=== PATIENT | female | born 1975 | race Caucasian/White ===

== ENCOUNTER 2016-04-24 16:35 | Emergency (ER) | payer MEDICARE ==
[2015-12-29 10:44] VITALS: BMI 55.2
[~2016-04-24 16:35] MED LIST: AMITRIPTYLINE H50 MG PO; CATAPRES0.1 MG PO; CELEXA10 MG PO; GLUCOPHAGE500 MG PO; IPRAT-ALBUT 0.5-3 ML UPD; LANTUS SOL100 UNIT/1 SC; NORVASC5 MG PO; PROAIR HFA8.5 GM INH; SINGULAIR10 MG PO; STERAPRED DS 1210 MG PO; SYMBICORT 16010.2 GM INH
== END 2016-04-24 19:35 | disposition home or self-care (01) ==
LOC: D.ER 16:35
DX: J01.90 Acute sinusitis, unspecified (principal); J20.9 Acute bronchitis, unspecified; F41.9 Anxiety disorder, unspecified; J45.909 Unspecified asthma, uncomplicated; J44.9 Chronic obstructive pulmonary disease, unspecified; F32.9 Major depressive disorder, single episode, unspecified; E11.9 Type 2 diabetes mellitus without complications; Z79.4 Long term (current) use of insulin; E28.2 Polycystic ovarian syndrome

== ENCOUNTER 2016-08-21 14:12 | Emergency (ER) | payer MEDICARE ==
[2015-12-29 10:44] VITALS: BMI 55.2
== END 2016-08-21 17:49 | disposition home or self-care (01) ==
LOC: D.ER 14:12
DX: S63.501A Unspecified sprain of right wrist, initial encounter (principal); W01.0XXA Fall on same level from slipping, tripping and stumbling without subsequent striking against object, initial encounter; Y93.89 Activity, other specified; Y92.512 Supermarket, store or market as the place of occurrence of the external cause; J45.909 Unspecified asthma, uncomplicated; J44.9 Chronic obstructive pulmonary disease, unspecified; F32.9 Major depressive disorder, single episode, unspecified; E11.9 Type 2 diabetes mellitus without complications; Z79.4 Long term (current) use of insulin; I10 Essential (primary) hypertension; E28.2 Polycystic ovarian syndrome

== ENCOUNTER 2016-10-18 11:36 | Emergency (ER) | payer MEDICARE ==
[2015-12-29 10:44] VITALS: BMI 55.2
[2016-10-18 12:34] LABS: APPEARANCE CLEAR (CLEAR); COLOR YELLOW (YELLOW); LEUKOCYTE ESTERASE NEGATIVE (NEGATIVE); SPECIFIC GRAVITY 1.015 (1.005-1.020)
[2016-10-18 12:35] LABS: BILIRUBIN NEGATIVE (NEGATIVE); GLUCOSE NEGATIVE (NEGATIVE); KETONE NEGATIVE (NEGATIVE); NITRITE NEGATIVE (NEGATIVE); PROTEIN NEGATIVE (NEGATIVE); UROBILINOGEN NORMAL (NORMAL)
[2016-10-18 12:42] LABS: UDS - AMPHET NEGATIVE QUAL (NEGATIVE); UDS - BARB NEGATIVE QUAL (NEGATIVE); UDS - BENZO NEGATIVE QUAL (NEGATIVE); UDS - COCAINE NEGATIVE QUAL (NEGATIVE); UDS - METH NEGATIVE QUAL (NEGATIVE); UDS - OPIATE NEGATIVE QUAL (NEGATIVE); UDS - PCP NEGATIVE QUAL (NEGATIVE); UDS - THC NEGATIVE QUAL (NEGATIVE)
[2016-10-18 13:00] LABS: HCG SERUM NEGATIVE (NEGATIVE)
[2016-10-18 13:06] LABS: ALBUMIN 3.6 g/dL (3.4-5.0); ALKALINE PHOSPHATASE 87 U/L (46-116); ALT (SGPT) 34 U/L (10-68); BILIRUBIN - TOTAL 0.28 mg/dL (0.2-1.3); CALC OSMOLALITY 277 mosm/kg (275-300); CARBON DIOXIDE 26.5 mmol/L (21.0-32.0); CHLORIDE - SERUM 102 mmol/L (98-107); CREATININE - SERUM 0.8 mg/dL (0.6-1.3); GLUCOSE 153 mg/dL (74-106); POTASSIUM - SERUM 4.5 mmol/L (3.5-5.1); PROTEIN - SERUM 7.6 g/dL (6.4-8.2); SODIUM 138 mmol/L (136-145); UREA NITROGEN 9 mg/dL (7-18); eGFR NON AFRICAN AMERICAN 83 mL/min (90-120)
[2016-10-18 13:07] LABS: APTT 27.3 SECONDS (22.8-39.4); INR 0.94 (0.85-1.17); PROTIME 12.4 SECONDS (11.6-15.0)
[2016-10-18 13:13] LABS: BASOPHILS 0.2 % (0-2); EOSINOPHILS 1.6 % (0-7); HEMATOCRIT 37.4 % (36.0-48.0); HEMOGLOBIN 12.5 g/dL (12-16); IMMATURE GRANULOCYTES 0.2 % (0-5); LYMPHOCYTES 27.8 % (15-50); MCH 29.6 pg (26.0-34.0); MCHC 33.4 g/dL (31.0-37.0); MCV 88.6 fL (80.0-100.0); MEAN PLATELET VOLUME 11.2 fL (7.4-10.4); MONOCYTES 6.2 % (2-11); PLATELET COUNT 298 10x3/uL (130-400); RBC 4.22 10x6/uL (4.00-5.40); RDW 13.5 % (11.5-14.5); WBC 12.2 10x3/uL (4.8-10.8)
== END 2016-10-18 14:22 | disposition home or self-care (01) ==
LOC: D.ER 11:36
PROVIDERS: Emergency Medicine; Physician Assistant
DX: R10.9 Unspecified abdominal pain (principal); K92.0 Hematemesis; E11.9 Type 2 diabetes mellitus without complications; Z79.4 Long term (current) use of insulin; I10 Essential (primary) hypertension

== ENCOUNTER 2016-11-03 11:11 | Emergency (ER) | payer MEDICARE ==
[2015-12-29 10:44] VITALS: BMI 55.2
== END 2016-11-03 14:28 | disposition home or self-care (01) ==
LOC: D.ER 11:11
DX: J45.901 Unspecified asthma with (acute) exacerbation (principal); J44.9 Chronic obstructive pulmonary disease, unspecified; E11.9 Type 2 diabetes mellitus without complications; I10 Essential (primary) hypertension; Z79.4 Long term (current) use of insulin

== ENCOUNTER → 2017-01-05 10:26 | Outpatient (CLI) | payer MEDICARE ==
[2015-12-29 10:44] VITALS: BMI 55.2
== END | disposition home or self-care (01) ==
LOC: D.RT 10:00
DX: J44.9 Chronic obstructive pulmonary disease, unspecified (principal)

== ENCOUNTER 2017-02-22 08:22 | Emergency (ER) | payer MEDICARE ==
[2015-12-29 10:44] VITALS: BMI 55.2
[~2017-02-22 08:22] MED LIST changes: -CELEXA10 MG PO; +CELEXA40 MG PO
[2017-02-22 08:55] LABS: BASOPHILS 0.3 % (0-2); EOSINOPHILS 0.8 % (0-7); HEMATOCRIT 37.5 % (36.0-48.0); HEMOGLOBIN 12.2 g/dL (12-16); IMMATURE GRANULOCYTES 0.7 % (0-5); LYMPHOCYTES 17.9 % (15-50); MCH 29.3 pg (26.0-34.0); MCHC 32.5 g/dL (31.0-37.0); MCV 90.1 fL (80.0-100.0); MONOCYTES 11.1 % (2-11); NEUTROPHILS 69.2 % (40-80); PLATELET COUNT 255 10x3/uL (130-400); RBC 4.16 10x6/uL (4.00-5.40); RDW 13.7 % (11.5-14.5); WBC 7.4 10x3/uL (4.8-10.8)
[2017-02-22 09:23] LABS: ALBUMIN 3.6 g/dL (3.4-5.0); ALKALINE PHOSPHATASE 85 U/L (46-116); ALT (SGPT) 38 U/L (10-68); BILIRUBIN - TOTAL 0.27 mg/dL (0.2-1.3); CALC OSMOLALITY 278 mosm/kg (275-300); CALCIUM 8.6 mg/dL (8.5-10.1); CARBON DIOXIDE 25.7 mmol/L (21.0-32.0); CHLORIDE - SERUM 101 mmol/L (98-107); CREATININE - SERUM 0.8 mg/dL (0.6-1.3); GLUCOSE 184 mg/dL (74-106); POTASSIUM - SERUM 3.5 mmol/L (3.5-5.1); PROTEIN - SERUM 8.4 g/dL (6.4-8.2); SODIUM 138 mmol/L (136-145); UREA NITROGEN 8 mg/dL (7-18); eGFR NON AFRICAN AMERICAN 83 mL/min (90-120)
== END 2017-02-22 10:34 | disposition home or self-care (01) ==
LOC: D.ER 08:22
PROVIDERS: Emergency Medicine
DX: J45.901 Unspecified asthma with (acute) exacerbation (principal); F17.200 Nicotine dependence, unspecified, uncomplicated; J44.9 Chronic obstructive pulmonary disease, unspecified; E11.9 Type 2 diabetes mellitus without complications; Z79.4 Long term (current) use of insulin; I10 Essential (primary) hypertension

== ENCOUNTER → 2017-03-22 08:19 | Outpatient (CLI) | payer MEDICARE ==
[~2017-03-22] VITALS: Ht 162.6 cm; Wt 156.5 kg
[~2017-03-22 08:19] MED LIST changes: +LOVENOX40 MG/0.4 SC; +NORCO 7.5/325 T1 TA1 PO; +OMEPRAZOLE40 MG PO; +ONDANSETRON4 MG/2 M3 IV; +PHENERGAN25 MG/ML IV; +PROTONIX I40 MG/VIAL IV; +TYLENOL650 MG/20. PO; +ZOFRAN4 MG PO
[2017-03-22 14:04] VITALS: Ht 162.6 cm; Wt 156.5 kg
== END | disposition home or self-care (01) ==
LOC: D.FANS 01-18 09:00
DX: K21.9 Gastro-esophageal reflux disease without esophagitis (principal); E66.01 Morbid (severe) obesity due to excess calories; E11.9 Type 2 diabetes mellitus without complications

== ENCOUNTER → 2017-03-24 08:09 | Outpatient (CLI) | payer MEDICARE ==
[2017-03-22 14:04] VITALS: BMI 59.2
== END | disposition home or self-care (01) ==
LOC: D.RAD 08:09
DX: E66.01 Morbid (severe) obesity due to excess calories (principal)

== ENCOUNTER 2017-03-29 08:24 | Day surgery (SDC) | payer MEDICARE ==
[~2017-03-29] VITALS: Ht 162.6 cm; Wt 155.9 kg
[~2017-03-29 08:24] MED LIST changes: -LOVENOX40 MG/0.4 SC; -NORCO 7.5/325 T1 TA1 PO; -OMEPRAZOLE40 MG PO; -ONDANSETRON4 MG/2 M3 IV; -PHENERGAN25 MG/ML IV; -PROTONIX I40 MG/VIAL IV; -TYLENOL650 MG/20. PO; -ZOFRAN4 MG PO
[2017-03-29 09:23] VITALS: BP 142/80; Ht 162.6 cm; Wt 155.9 kg
[2017-03-29 09:54] LABS: HEMATOCRIT 37.5 % (36.0-48.0); HEMOGLOBIN 12.5 g/dL (12-16); MCH 29.5 pg (26.0-34.0); MCHC 33.3 g/dL (31.0-37.0); MCV 88.4 fL (80.0-100.0); MEAN PLATELET VOLUME 10.9 fL (7.4-10.4); RBC 4.24 10x6/uL (4.00-5.40); RDW 13.3 % (11.5-14.5); WBC 11.5 10x3/uL (4.8-10.8)
[2017-03-29 10:43] LABS: CALC OSMOLALITY 278 mosm/kg (275-300); CALCIUM 9.3 mg/dL (8.5-10.1); CARBON DIOXIDE 28.4 mmol/L (21.0-32.0); CHLORIDE - SERUM 100 mmol/L (98-107); CREATININE - SERUM 0.7 mg/dL (0.6-1.3); GLUCOSE 188 mg/dL (74-106); POTASSIUM - SERUM 3.8 mmol/L (3.5-5.1); SODIUM 137 mmol/L (136-145); UREA NITROGEN 13 mg/dL (7-18); eGFR NON AFRICAN AMERICAN > 90 mL/min (90-120)
[2017-03-29] MEDS ORDERED: OMEPRAZOLE40 MG PO (10:43)
== END 2017-03-29 11:35 | disposition home or self-care (01) ==
LOC: D.OPS 08:24
PROVIDERS: Anesthesiology
DX: K21.0 Gastro-esophageal reflux disease with esophagitis (principal); K29.70 Gastritis, unspecified, without bleeding; E66.01 Morbid (severe) obesity due to excess calories; Z68.43 Body mass index [BMI] 50.0-59.9, adult; I10 Essential (primary) hypertension; J44.9 Chronic obstructive pulmonary disease, unspecified; G47.30 Sleep apnea, unspecified; E11.9 Type 2 diabetes mellitus without complications; Z01.812 Encounter for preprocedural laboratory examination

== ENCOUNTER 2017-04-13 05:15 | Inpatient (IN) | payer MEDICARE ==
[2017-04-12 14:44] LABS: HEMATOCRIT 38.8 % (36.0-48.0); MCH 29.8 pg (26.0-34.0); MCHC 33.5 g/dL (31.0-37.0); MEAN PLATELET VOLUME 10.9 fL (7.4-10.4); RBC 4.36 10x6/uL (4.00-5.40); RDW 13.3 % (11.5-14.5); WBC 11.4 10x3/uL (4.8-10.8)
[2017-04-12 14:56] LABS: CALC OSMOLALITY 276 mosm/kg (275-300); CARBON DIOXIDE 30.4 mmol/L (21.0-32.0); CHLORIDE - SERUM 98 mmol/L (98-107); CREATININE - SERUM 0.7 mg/dL (0.6-1.3); POTASSIUM - SERUM 3.7 mmol/L (3.5-5.1); SODIUM 138 mmol/L (136-145); UREA NITROGEN 9 mg/dL (7-18); eGFR NON AFRICAN AMERICAN > 90 mL/min (90-120)
[2017-04-12 14:59] LABS: GLUCOSE 137 mg/dL (74-106)
[~2017-04-13] VITALS: Ht 167.6 cm; Wt 143.0 kg
--- NOTE | ~2017-04-13 | OP ---
PATIENT NAME: YRN ECHEVARRIA MEDICAL RECORD: [id number] :73 LOCATION:[facility] ADMISSION DATE:04/13/17 SURGEON: AILYN GORDILLO MD DATE OF OPERATION: 04/13/2017 ASSISTANCE NOTE I assisted Dr. VITALY Hendrix with the laparoscopic sleeve gastrectomy. I was present for all critical portions of the case. Due to the complexity of the operative procedure, it was necessary to have 2 attending surgeons present for the critical portions of the operation. I scrubbed in as the trocars had been placed and the retractor. My involvement in the operation included retraction of tissues. Assistance with suturing of the staple line. Retraction of the stomach during the stapling division process. Dissection with the Harmonic scalpel. Division of about a half of the short gastrics with the Harmonic scalpel. Running the camera. Irrigating and aspirating. I scrubbed out as the final trocar sites were being closed by Dr. Hendrix. TRANSINT:[id number] Voice Confirmation ID: [id number] DOCUMENT ID: [id number] AILYN GORDILLO MD at 0938 CC: APRIL HENDRIX MD [id number] DICTATION DATE: 04/13/17 1321 LINK KNITTING MACHINE OPERATOR: 04/13/17 1338 DIS IN 04/20/[address] [address]
--- NOTE | ~2017-04-13 | OP ---
PATIENT NAME: YRN ECHEVARRIA MEDICAL RECORD: [id number] :73 LOCATION:[facility] D.2306 ADMISSION DATE:04/13/17 SURGEON: APRIL HENDRIX MD DATE OF OPERATION: 04/15/2017 SURGEON: April Hendrix MD PREOPERATIVE DIAGNOSES: 1. Postoperative renal failure. 2. Morbid obesity, status post laparoscopic sleeve gastrectomy. POSTOPERATIVE DIAGNOSES: 1. Postoperative renal failure. 2. Morbid obesity, status post laparoscopic sleeve gastrectomy. PROCEDURE PERFORMED: Diagnostic laparoscopy, abdominal washout with intraabdominal drain placement, and right ultrasound-guided internal jugular Trialysis catheter placement. ANESTHESIA: General. COMPLICATIONS: None. SPECIMENS: None. Case was clean. OPERATIVE COURSE: After consent was obtained, the patient was taken to the operating room and placed in supine position on the operating table. General anesthesia was given via endotracheal intubation and after a timeout was taken to confirm the correct patient and procedure. The right neck was prepped and draped in typical sterile fashion. Ultrasound was used to identify the right internal jugular vein. The right internal jugular vein was cannulated under direct ultrasound guidance. Next, a guidewire was placed and then it was removed. The tract was serially dilated over the wire in a standard Seldinger fashion. A 13-Japanese Trialysis catheter was then passed over the wire in a standard Seldinger fashion. A Biopatch was placed. It was secured to the skin using 2-0 nylon suture. All 3 ports were aspirated and flushed. Next, the abdomen was prepped and draped in typical sterile fashion. A 12-mm trocar replaced the prior 12-mm torcar site in the right lower quadrant under direct laparoscopic vision using the Optifix trocar, the abdomen was insufflated. There was minimal fluid in the abdomen. There was no fibrinous exudate noted. No succuss, no bile, no blood noted. There was no active bleeding. At this time, 3 additional trocars were placed through the prior trocar incisions. Cezar retractor was placed and the left lobe of the liver was retracted. The staple line in the stomach was meticulously inspected. There was no evidence of leak. No fluid collections, no exudate. A JEF drain was placed on the staple line of the stomach. The remaining portion of the upper abdomen was then copiously irrigated and suctioned. Again, there was no evidence of bile leak. No evidence of bowel injury. Transverse colon was inspected as well as the hepatic flexure, splenic flexure, the proximal portion of the small bowel. The lower abdomen was well walled off from the adhesions from prior operations. The proximal small bowel underneath the transverse colon was run and it was dilated with no enterotomies were identified. There was no succuss in the abdomen upon running the bowel, large or small bowel. The gallbladder was OPERATIVE REPORT [id number] YRN ECHEVARRIA within normal limits. At this time, a second JEF drain was placed into the left upper quadrant. The abdomen was again copiously irrigated and suctioned. No evidence of bile leak. No evidence of succuss. No evidence of bleeding. At this time, the Cezar retractor was removed and remaining instruments removed. Trocars removed. Skin was closed with vi. JEF drains were secured using 2-0 nylon suture. At the end of the case, all needle and instrument counts were correct. No complications occurred. The patient was extubated and transferred to the PACU in stable condition. TRANSINT:[id number] Voice Confirmation ID: [id number] DOCUMENT ID: [id number] APRIL HENDRIX MD at 1658 CC: [id number] DICTATION DATE: 04/15/17 1253 GAS AND OIL SERVICER: 04/15/17 1325 ADM IN [facility] [address] [place] [address]
[~2017-04-13 05:15] MED LIST changes: +OMEPRAZOLE40 MG PO
[2017-04-13 07:58] VITALS: BP 141/80; BMI 55.1
[2017-04-13 15:15] VITALS: BP 159/98
[2017-04-13 15:24] VITALS: BP 159/98; BMI 55.1
[2017-04-13 20:00] VITALS: BP 171/89
[2017-04-14] VITALS: BP 163/81
[2017-04-14 04:00] VITALS: BP 137/84
[2017-04-14 06:20] LABS: BASOPHILS 0.2 % (0-2); EOSINOPHILS 0.7 % (0-7); HEMATOCRIT 40.5 % (36.0-48.0); IMMATURE GRANULOCYTES 0.4 % (0-5); LYMPHOCYTES 10.1 % (15-50); MCH 29.5 pg (26.0-34.0); MCHC 32.1 g/dL (31.0-37.0); MCV 91.8 fL (80.0-100.0); MEAN PLATELET VOLUME 11.1 fL (7.4-10.4); MONOCYTES 7.1 % (2-11); NEUTROPHILS 81.5 % (40-80); PLATELET COUNT 349 10x3/uL (130-400); RBC 4.41 10x6/uL (4.00-5.40); RDW 14.1 % (11.5-14.5); WBC 18.7 10x3/uL (4.8-10.8)
[2017-04-14 07:03] LABS: ALBUMIN 3.8 g/dL (3.4-5.0); BILIRUBIN - TOTAL 0.99 mg/dL (0.2-1.3); CALCIUM 8.7 mg/dL (8.5-10.1); PROTEIN - SERUM 8.4 g/dL (6.4-8.2)
[2017-04-14 07:04] LABS: ANION GAP 19.3 mmol/L (8-16); CARBON DIOXIDE 20.5 mmol/L (21.0-32.0); POTASSIUM - SERUM 4.8 mmol/L (3.5-5.1)
[2017-04-14 07:59] VITALS: BP 141/78
[2017-04-14 12:23] VITALS: BP 157/73
[2017-04-14 15:52] VITALS: BP 113/66
[2017-04-14 19:21] LABS: BASOPHILS 0.3 % (0-2); EOSINOPHILS 0.2 % (0-7); HEMATOCRIT 34.7 % (36.0-48.0); HEMOGLOBIN 11.2 g/dL (12-16); IMMATURE GRANULOCYTES 0.4 % (0-5); LYMPHOCYTES 12.4 % (15-50); MCH 29.6 pg (26.0-34.0); MCHC 32.3 g/dL (31.0-37.0); MCV 91.8 fL (80.0-100.0); MEAN PLATELET VOLUME 10.7 fL (7.4-10.4); MONOCYTES 8.7 % (2-11); RBC 3.78 10x6/uL (4.00-5.40); RDW 14.6 % (11.5-14.5); WBC 18.8 10x3/uL (4.8-10.8)
[2017-04-14 19:22] LABS: PLATELET COUNT 273 10x3/uL (130-400)
[2017-04-14 19:44] LABS: ANION GAP 15.7 mmol/L (8-16); CALCIUM 7.6 mg/dL (8.5-10.1); CARBON DIOXIDE 24.6 mmol/L (21.0-32.0); POTASSIUM - SERUM 4.3 mmol/L (3.5-5.1)
[2017-04-14 19:45] LABS: CREATININE - SERUM 3.7 mg/dL (0.6-1.3)
[2017-04-14 20:00] VITALS: BP 127/56
[2017-04-15] VITALS (14 sets, daily range): BP systolic 121–186; BP diastolic 67–104
[2017-04-15 05:10] LABS: BASOPHILS 0.2 % (0-2); EOSINOPHILS 0.4 % (0-7); HEMATOCRIT 33.6 % (36.0-48.0); HEMOGLOBIN 10.9 g/dL (12-16); IMMATURE GRANULOCYTES 0.5 % (0-5); LYMPHOCYTES 13.9 % (15-50); MCH 29.6 pg (26.0-34.0); MCHC 32.4 g/dL (31.0-37.0); MCV 91.3 fL (80.0-100.0); MONOCYTES 7.9 % (2-11); NEUTROPHILS 77.1 % (40-80); PLATELET COUNT 278 10x3/uL (130-400); RBC 3.68 10x6/uL (4.00-5.40); RDW 14.7 % (11.5-14.5); WBC 18.7 10x3/uL (4.8-10.8)
[2017-04-15 05:28] LABS: ALBUMIN 3.2 g/dL (3.4-5.0); ANION GAP 16.4 mmol/L (8-16); BILIRUBIN - TOTAL 1.87 mg/dL (0.2-1.3); CALCIUM 8.1 mg/dL (8.5-10.1); CARBON DIOXIDE 24.1 mmol/L (21.0-32.0); POTASSIUM - SERUM 4.5 mmol/L (3.5-5.1); PROTEIN - SERUM 7.2 g/dL (6.4-8.2)
[2017-04-15 05:29] LABS: CREATININE - SERUM 4.9 mg/dL (0.6-1.3)
[2017-04-15 13:56] LABS: APTT 31.2 SECONDS (22.8-39.4); INR 1.25 (0.85-1.17); PROTIME 15.2 SECONDS (11.6-15.0)
[2017-04-15 15:02] LABS: BASOPHILS 0.2 % (0-2); EOSINOPHILS 0.2 % (0-7); HEMATOCRIT 31.8 % (36.0-48.0); HEMOGLOBIN 10.1 g/dL (12-16); IMMATURE GRANULOCYTES 0.8 % (0-5); LYMPHOCYTES 8.8 % (15-50); MCH 29.3 pg (26.0-34.0); MCHC 31.8 g/dL (31.0-37.0); MCV 92.2 fL (80.0-100.0); MEAN PLATELET VOLUME 10.4 fL (7.4-10.4); MONOCYTES 6.3 % (2-11); NEUTROPHILS 83.7 % (40-80); PLATELET COUNT 246 10x3/uL (130-400); RBC 3.45 10x6/uL (4.00-5.40); RDW 14.8 % (11.5-14.5); WBC 18.4 10x3/uL (4.8-10.8)
[2017-04-15 15:38] LABS: ALBUMIN 2.8 g/dL (3.4-5.0); ANION GAP 12.8 mmol/L (8-16); BILIRUBIN - TOTAL 1.72 mg/dL (0.2-1.3); CARBON DIOXIDE 25.1 mmol/L (21.0-32.0); CREATININE - SERUM 5.2 mg/dL (0.6-1.3); POTASSIUM - SERUM 4.9 mmol/L (3.5-5.1); PROTEIN - SERUM 6.1 g/dL (6.4-8.2)
[2017-04-15 15:47] LABS: CALCIUM 6.8 mg/dL (8.5-10.1)
[2017-04-15 18:28] LABS: APPEARANCE HAZY (CLEAR); BILIRUBIN NEGATIVE (NEGATIVE); COLOR AMBER (YELLOW); GLUCOSE 50 mg/dL (NEGATIVE); KETONE NEGATIVE (NEGATIVE); NITRITE NEGATIVE (NEGATIVE); PROTEIN 1+ mg/dL (NEGATIVE); UROBILINOGEN NORMAL (NORMAL)
[2017-04-15 18:30] LABS: BACTERIA MODERATE /hpf (NONE SEEN); EPITHELIAL CELLS 0-5 /hpf (0-5)
[2017-04-15 18:32] LABS: AMORPHOUS SEDIMENT <1+ /lpf (NONE SEEN); WAXY CAST 0-5 /lpf (NONE SEEN)
[2017-04-16] VITALS (19 sets, daily range): BP systolic 132–170; BP diastolic 52–101; Ht 167.6 cm; Wt 143.0 kg
[2017-04-16 05:24] LABS: BASOPHILS 0.1 % (0-2); EOSINOPHILS 0.7 % (0-7); HEMATOCRIT 30.8 % (36.0-48.0); HEMOGLOBIN 9.9 g/dL (12-16); IMMATURE GRANULOCYTES 0.4 % (0-5); LYMPHOCYTES 11.3 % (15-50); MCH 29.5 pg (26.0-34.0); MCHC 32.1 g/dL (31.0-37.0); MCV 91.7 fL (80.0-100.0); MEAN PLATELET VOLUME 10.6 fL (7.4-10.4); MONOCYTES 7.9 % (2-11); NEUTROPHILS 79.6 % (40-80); PLATELET COUNT 244 10x3/uL (130-400); RBC 3.36 10x6/uL (4.00-5.40); RDW 14.8 % (11.5-14.5); WBC 14.2 10x3/uL (4.8-10.8)
[2017-04-16 05:38] LABS: ANION GAP 14.4 mmol/L (8-16); MAGNESIUM - SERUM 1.6 mg/dL (1.8-2.4); POTASSIUM - SERUM 4.4 mmol/L (3.5-5.1)
[2017-04-16 05:41] LABS: CREATININE - SERUM 2.8 mg/dL (0.6-1.3)
[2017-04-16 06:14] LABS: CALCIUM 7.5 mg/dL (8.5-10.1)
[2017-04-17] VITALS (11 sets, daily range): BP systolic 136–163; BP diastolic 70–98
[2017-04-17 03:55] LABS: BASOPHILS 0.2 % (0-2); EOSINOPHILS 1.2 % (0-7); HEMOGLOBIN 9.6 g/dL (12-16); IMMATURE GRANULOCYTES 0.4 % (0-5); LYMPHOCYTES 12.2 % (15-50); MCH 29.6 pg (26.0-34.0); MCV 92.6 fL (80.0-100.0); MEAN PLATELET VOLUME 10.2 fL (7.4-10.4); MONOCYTES 8.7 % (2-11); NEUTROPHILS 77.3 % (40-80); PLATELET COUNT 291 10x3/uL (130-400); RBC 3.24 10x6/uL (4.00-5.40)
[2017-04-17 04:04] LABS: APTT 34.2 SECONDS (22.8-39.4); INR 1.21 (0.85-1.17); PROTIME 14.9 SECONDS (11.6-15.0)
[2017-04-17 04:07] LABS: ALBUMIN 2.3 g/dL (3.4-5.0); ANION GAP 13.4 mmol/L (8-16); BILIRUBIN - DIRECT 0.45 mg/dL (0.00-0.30); BILIRUBIN - TOTAL 0.83 mg/dL (0.2-1.3); CARBON DIOXIDE 25.6 mmol/L (21.0-32.0); MAGNESIUM - SERUM 1.8 mg/dL (1.8-2.4); PHOSPHOROUS 1.9 mg/dL (2.5-4.9); PROTEIN - SERUM 6.7 g/dL (6.4-8.2)
[2017-04-17 04:13] LABS: CREATININE - SERUM 1.1 mg/dL (0.6-1.3)
[2017-04-18] VITALS: BP 158/67
[2017-04-18 04:00] VITALS: BP 173/92
[2017-04-18 08:37] LABS: BASOPHILS 0.2 % (0-2); EOSINOPHILS 2.6 % (0-7); HEMATOCRIT 29.8 % (36.0-48.0); HEMOGLOBIN 9.6 g/dL (12-16); IMMATURE GRANULOCYTES 0.3 % (0-5); LYMPHOCYTES 20.4 % (15-50); MCH 29.5 pg (26.0-34.0); MCHC 32.2 g/dL (31.0-37.0); MCV 91.7 fL (80.0-100.0); MEAN PLATELET VOLUME 10.4 fL (7.4-10.4); NEUTROPHILS 67.5 % (40-80); PLATELET COUNT 294 10x3/uL (130-400); RBC 3.25 10x6/uL (4.00-5.40); RDW 14.8 % (11.5-14.5); WBC 11.8 10x3/uL (4.8-10.8)
[2017-04-18 08:59] LABS: CALCIUM 8.7 mg/dL (8.5-10.1); CARBON DIOXIDE 27.1 mmol/L (21.0-32.0); CHLORIDE - SERUM 106 mmol/L (98-107); GLUCOSE 149 mg/dL (74-106); MAGNESIUM - SERUM 1.8 mg/dL (1.8-2.4); POTASSIUM - SERUM 3.6 mmol/L (3.5-5.1); SODIUM 143 mmol/L (136-145); eGFR NON AFRICAN AMERICAN 83 mL/min (90-120)
[2017-04-18 09:00] LABS: CALC OSMOLALITY 287 mosm/kg (275-300); CREATININE - SERUM 0.8 mg/dL (0.6-1.3); UREA NITROGEN 13 mg/dL (7-18)
[2017-04-18 09:56] VITALS: BP 196/94
[2017-04-18 12:47] VITALS: BP 195/81
[2017-04-18 16:13] VITALS: BP 157/80
[2017-04-18 20:00] VITALS: BP 151/71
[2017-04-19] VITALS: BP 148/73
[2017-04-19 04:00] VITALS: BP 142/79
[2017-04-19 07:21] LABS: IMMUNOGLOBULIN E 1005 IU/mL (0-100)
[2017-04-19 08:07] VITALS: BP 197/109
[2017-04-19 08:40] LABS: BASOPHILS 0.3 % (0-2); EOSINOPHILS 3.7 % (0-7); HEMATOCRIT 29.9 % (36.0-48.0); HEMOGLOBIN 9.5 g/dL (12-16); IMMATURE GRANULOCYTES 0.4 % (0-5); LYMPHOCYTES 24.5 % (15-50); MCH 28.6 pg (26.0-34.0); MCHC 31.8 g/dL (31.0-37.0); MCV 90.1 fL (80.0-100.0); MEAN PLATELET VOLUME 10.8 fL (7.4-10.4); NEUTROPHILS 62.1 % (40-80); PLATELET COUNT 298 10x3/uL (130-400); RBC 3.32 10x6/uL (4.00-5.40); RDW 14.7 % (11.5-14.5); WBC 11.3 10x3/uL (4.8-10.8)
[2017-04-19 09:09] LABS: CALC OSMOLALITY 283 mosm/kg (275-300); CALCIUM 8.5 mg/dL (8.5-10.1); CARBON DIOXIDE 28.3 mmol/L (21.0-32.0); CHLORIDE - SERUM 105 mmol/L (98-107); CREATININE - SERUM 0.7 mg/dL (0.6-1.3); GLUCOSE 138 mg/dL (74-106); MAGNESIUM - SERUM 1.6 mg/dL (1.8-2.4); POTASSIUM - SERUM 3.1 mmol/L (3.5-5.1); PRO BNP 1261 pg/mL (0-125); SODIUM 142 mmol/L (136-145); UREA NITROGEN 10 mg/dL (7-18); eGFR NON AFRICAN AMERICAN > 90 mL/min (90-120)
[2017-04-19 12:43] VITALS: BP 125/77
[2017-04-19 16:08] VITALS: BP 157/67
[2017-04-19 20:00] VITALS: BP 149/71
[2017-04-20 05:22] LABS: BASOPHILS 0.2 % (0-2); EOSINOPHILS 3.9 % (0-7); HEMATOCRIT 28.6 % (36.0-48.0); HEMOGLOBIN 9.2 g/dL (12-16); IMMATURE GRANULOCYTES 0.6 % (0-5); MCH 28.8 pg (26.0-34.0); MCHC 32.2 g/dL (31.0-37.0); MCV 89.7 fL (80.0-100.0); MEAN PLATELET VOLUME 10.8 fL (7.4-10.4); MONOCYTES 7.8 % (2-11); NEUTROPHILS 61.5 % (40-80); PLATELET COUNT 315 10x3/uL (130-400); RBC 3.19 10x6/uL (4.00-5.40); RDW 14.4 % (11.5-14.5)
[2017-04-20 05:41] LABS: CALC OSMOLALITY 283 mosm/kg (275-300); CALCIUM 8.5 mg/dL (8.5-10.1); CARBON DIOXIDE 31.1 mmol/L (21.0-32.0); CHLORIDE - SERUM 102 mmol/L (98-107); CREATININE - SERUM 0.7 mg/dL (0.6-1.3); GLUCOSE 138 mg/dL (74-106); MAGNESIUM - SERUM 1.4 mg/dL (1.8-2.4); SODIUM 142 mmol/L (136-145); UREA NITROGEN 10 mg/dL (7-18); eGFR NON AFRICAN AMERICAN > 90 mL/min (90-120)
[2017-04-20 06:28] LABS: POTASSIUM - SERUM 2.8 mmol/L (3.5-5.1)
[2017-04-20 08:35] VITALS: BP 169/89
[2017-04-20 13:48] VITALS: BP 169/82
[2017-04-20 16:04] VITALS: BP 167/89
[2017-04-20] MEDS ORDERED: NORCO 7.5/325 T1 TA1 PO (17:04)
[2017-04-20] MEDS ORDERED: ONDANSETRON4 MG/2 M3 IV (17:26)
[2017-04-20] MEDS ORDERED: PHENERGAN25 MG/ML IV (17:26)
[2017-04-20] MEDS ORDERED: TYLENOL650 MG/20. PO (17:26)
[2017-04-20] MEDS ORDERED: PROTONIX I40 MG/VIAL IV (17:26)
[2017-04-20] MEDS ORDERED: LOVENOX40 MG/0.4 SC (17:26)
== END 2017-04-20 20:30 | DRG 620 ==
LOC: D.MS 05:15 → D.SDCHOLD 05:15 → D.MS 14:10 → D.ICU 04-15 13:19 → D.MS 04-17 13:21
PROVIDERS: Anesthesiology; Internal Medicine; Internal Medicine Pulmonary Disease; Surgery
PROC: 0DB64Z3 Excision of Stomach, Percutaneous Endoscopic Approach, Vertical (ICD-10-PCS; principal; 2017-04-13 10:30)
PROC: 0W9G40Z Drainage of Peritoneal Cavity with Drainage Device, Percutaneous Endoscopic Approach (ICD-10-PCS; 2017-04-15)
PROC: 3E1M38Z Irrigation of Peritoneal Cavity using Irrigating Substance, Percutaneous Approach (ICD-10-PCS; 2017-04-15 11:00)
DX: E66.01 Morbid (severe) obesity due to excess calories (principal); N17.9 Acute kidney failure, unspecified; J98.11 Atelectasis; M35.1 Other overlap syndromes; I50.22 Chronic systolic (congestive) heart failure; Z68.43 Body mass index [BMI] 50.0-59.9, adult; I11.0 Hypertensive heart disease with heart failure; J44.9 Chronic obstructive pulmonary disease, unspecified; E11.40 Type 2 diabetes mellitus with diabetic neuropathy, unspecified; E11.21 Type 2 diabetes mellitus with diabetic nephropathy; K21.9 Gastro-esophageal reflux disease without esophagitis; G47.33 Obstructive sleep apnea (adult) (pediatric); Z99.81 Dependence on supplemental oxygen; E83.42 Hypomagnesemia; D64.9 Anemia, unspecified; R79.89 Other specified abnormal findings of blood chemistry

== ENCOUNTER 2017-04-20 21:51 | Inpatient (IN) | payer MEDICARE ==
[~2017-04-20] VITALS: Ht 167.6 cm; Wt 164.2 kg
--- NOTE | ~2017-04-20 | RHP ---
PATIENT: YRN ECHEVARRIA MEDICAL RECORD: [id number] ACCOUNT: [id number] LOCATION:[facility]1119 : 73 ADMISSION DATE: 04/20/17 REHABILITATION HISTORY AND PHYSICAL EXAMINATION POST ADMISSION PHYSICIAN EXAMINATION DATE OF ADMISSION TO THE REHAB: 04/20/2017. ADMITTING DIAGNOSIS: Disuse myopathy. HISTORY OF PRESENT ILLNESS: The patient is a 41-year-old female patient who was hospitalized 7 days ago on 04/13 for laparoscopic vertical sleeve gastrectomy. She suffered complications postop including acute kidney injury, acute renal failure, oliguria, ileus, hematuria, CHF, pulmonary edema, left upper lobe infiltrate, bilateral pleural effusions, severe abdominal pain, fever, and lethargy. She developed an excessive amount of drainage from her incisions. On postop day #2, she was taken back to the OR for diagnostic laparoscope with abdominal washing and JEF drain placement and placement of Trialysis catheter. She was moved to the ICU postop and was there for 2 days. Pulmonary and nephrology were consulted. After aggressive IV fluid resuscitation, her creatinine and urine output markedly improved. She was transferred back to the acute surgical wound, continue on IV broad-spectrum antibiotics, aggressive pulmonary toilet, bariatric clear liquid diet, and reconsult for PT to get out of bed was done. She has had prolonged immobility, progressive generalized weakness, especially on lower extremities affecting her exercise tolerance. She is fatigued with limited flexion and extension of her lower extremities, proximal muscle strength is decreased, moderate to max assist for ADLs, moderate to max assist for sit to stand and bed to chair. She is highly motivated and has good family support to regain her strength and return back to home at her prior level of function where she was independent without any type of assistive device. COMORBIDITIES: Include diabetes, morbid obesity, hypertension, pneumonia, COPD, acute kidney injury, postop fever, acute renal failure, oliguria, pulmonary edema, left upper lobe infiltrate, bilateral pleural effusions, obstructive sleep apnea, postop atelectasis, suspected CHF, ileus, small-bowel obstruction, seizures, hypertension, anemia, electrolyte abnormalities, and debility. PAST MEDICAL HISTORY: Significant for neuropathy, migraines. She has got a history of diabetes, hypertension, CHF, COPD, asthma, depression, and anxiety. PAST SURGICAL HISTORY: Includes and hysterectomy. ALLERGIES: PENICILLIN, CINNAMON, ADVAIR DISKUS, BEE VENOM, WASP VENOM. CURRENT MEDICATIONS: Include Protonix 40 mg IV b.i.d. She is on Lovenox 40 mg subcutaneous b.i.d., clonidine 0.1 t.i.d., citalopram 40 mg daily, amlodipine 5 mg daily, Elavil 5 mg at bedtime, promethazine p.r.n. nausea and vomiting, DuoNeb updrafts, hydrocodone 7.5/325 one tab q.4 hours p.r.n., and Tylenol liquid p.r.n. elevated temperature. HABITS: No alcohol or tobacco use. FAMILY HISTORY: Noncontributory. HISTORY AND PHYSICAL [id number] YRN ECHEVARRIA SOCIAL HISTORY: The patient hopes to return back home and get back to her prior level of functioning. REVIEW OF SYSTEMS: GENERAL: Does complain of weakness. HEENT: She denies cold, cough, or congestion. CARDIOVASCULAR: Denies chest pain. PHYSICAL EXAMINATION: VITAL SIGNS: Stable, afebrile. GENERAL: A morbidly obese female in no acute distress, alert upon exam. HEENT: Normocephalic and atraumatic. Mucosa moist. NECK: Supple. No lymphadenopathy. LUNGS: Clear. HEART: Regular rate and rhythm. ABDOMEN: Noted to be soft. She does have some surgical scars noted. EXTREMITIES: No clubbing, cyanosis, or edema. NEUROLOGIC: Intact. LABORATORY DATA: Admit labs show a white count of 11,000, H&H of 9.4 and 28.8, and platelet count was 344. Sodium is 141, potassium 3.5, BUN and creatinine of 9 and 0.6, and blood sugar of 133. ASSESSMENT: This 41-year-old female patient admitted to rehab with a working diagnosis of disuse myopathy. The patient has potential to make improvement. We instituted the following multidisciplinary therapies including to, but not limited to physical, occupational, respiratory, speech, nutritional services, prosthetics and orthotics. Given her complex condition and risk for more complications, rehabilitation services cannot be provided at a lower level of care such as longterm facility. PLAN: 1. Admit to [facility] rehab for intensive inpatient therapy to include the following disciplines: A. Physical therapy to include gait and occupational therapy to get the patient back to independent level. 2. The patient's current medication and medical care will be continued. 3. The patient will be placed on standard fall precautions. 4. The patient's stay is approximately 7-10 days. 5. Discuss this patient during care team staff meeting this week. TRANSINT:[id number] Voice Confirmation ID: [id number] DOCUMENT ID: [id number] CHARLES notes whether there has been none or any medical/functional change since admission: - No change since prescreen. CHARLES attests patient continues to be appropriate for IRF: - Continues to be appropriate. HISTORY AND PHYSICAL [id number] YRN ECHEVARRIA SCOTT MD at 1740 CC: [id number] DICTATION DATE: 04/21/17 0944 WATERPROOFER: 04/21/17 1035 ADM IN [facility] [address] [place] [address]
[~2017-04-20 21:51] MED LIST changes: +LOVENOX40 MG/0.4 SC; +NORCO 7.5/325 T1 TA1 PO; +ONDANSETRON4 MG/2 M3 IV; +PHENERGAN25 MG/ML IV; +PROTONIX I40 MG/VIAL IV; +TYLENOL650 MG/20. PO
[2017-04-20 22:35] VITALS: BP 175/80; BMI 58.5
[2017-04-21 06:59] LABS: BASOPHILS 0.2 % (0-2); EOSINOPHILS 4.5 % (0-7); HEMATOCRIT 28.8 % (36.0-48.0); HEMOGLOBIN 9.4 g/dL (12-16); IMMATURE GRANULOCYTES 0.6 % (0-5); LYMPHOCYTES 24.2 % (15-50); MCH 29.3 pg (26.0-34.0); MCHC 32.6 g/dL (31.0-37.0); MCV 89.7 fL (80.0-100.0); MEAN PLATELET VOLUME 10.9 fL (7.4-10.4); MONOCYTES 7.4 % (2-11); NEUTROPHILS 63.1 % (40-80); PLATELET COUNT 344 10x3/uL (130-400); RBC 3.21 10x6/uL (4.00-5.40); RDW 14.5 % (11.5-14.5)
[2017-04-21 07:12] LABS: CALC OSMOLALITY 281 mosm/kg (275-300); CALCIUM 8.3 mg/dL (8.5-10.1); CARBON DIOXIDE 31.5 mmol/L (21.0-32.0); CHLORIDE - SERUM 103 mmol/L (98-107); CREATININE - SERUM 0.6 mg/dL (0.6-1.3); GLUCOSE 133 mg/dL (74-106); POTASSIUM - SERUM 3.5 mmol/L (3.5-5.1); SODIUM 141 mmol/L (136-145); UREA NITROGEN 9 mg/dL (7-18); eGFR NON AFRICAN AMERICAN > 90 mL/min (90-120)
[2017-04-21 10:51] VITALS: Ht 167.6 cm; Wt 164.2 kg
[2017-04-21 19:00] VITALS: BP 148/73
[2017-04-22 08:16] VITALS: BP 120/42
[2017-04-22 19:00] VITALS: BP 153/79
[2017-04-23 08:23] VITALS: BP 147/76
[2017-04-23 19:00] VITALS: BP 127/61
[2017-04-24 07:30] LABS: BASOPHILS 0.3 % (0-2); EOSINOPHILS 3.2 % (0-7); HEMATOCRIT 28.7 % (36.0-48.0); HEMOGLOBIN 9.3 g/dL (12-16); IMMATURE GRANULOCYTES 1.5 % (0-5); LYMPHOCYTES 33.3 % (15-50); MCHC 32.4 g/dL (31.0-37.0); MCV 89.4 fL (80.0-100.0); MEAN PLATELET VOLUME 11.8 fL (7.4-10.4); MONOCYTES 7.7 % (2-11); PLATELET COUNT 335 10x3/uL (130-400); RBC 3.21 10x6/uL (4.00-5.40); RDW 14.2 % (11.5-14.5); WBC 9.6 10x3/uL (4.8-10.8)
[2017-04-24 08:00] VITALS: BP 122/66
[2017-04-24 08:13] LABS: CALC OSMOLALITY 278 mosm/kg (275-300); CARBON DIOXIDE 30.4 mmol/L (21.0-32.0); CHLORIDE - SERUM 101 mmol/L (98-107); CREATININE - SERUM 0.7 mg/dL (0.6-1.3); GLUCOSE 114 mg/dL (74-106); POTASSIUM - SERUM 3.4 mmol/L (3.5-5.1); SODIUM 141 mmol/L (136-145); UREA NITROGEN 5 mg/dL (7-18); eGFR NON AFRICAN AMERICAN > 90 mL/min (90-120)
[2017-04-25 01:27] VITALS: BP 156/82
[2017-04-25 08:00] VITALS: BP 146/77
[2017-04-26 08:16] VITALS: BP 140/65
[2017-04-26] MEDS ORDERED: NORCO 7.5/325 T1 TA1 PO (10:08)
[2017-04-26] MEDS ORDERED: ZOFRAN4 MG PO (11:28)
[2017-04-26] MEDS ORDERED: IPRAT-ALBUT 0.5-3 ML UPD (11:38)
== END 2017-04-26 12:35 | disposition home or self-care (01) | DRG 91 ==
LOC: D.REHAB 21:51
PROVIDERS: Emergency Medicine
DX: G72.89 Other specified myopathies (principal); J18.9 Pneumonia, unspecified organism; N17.9 Acute kidney failure, unspecified; J81.1 Chronic pulmonary edema; J90 Pleural effusion, not elsewhere classified; K56.7 Ileus, unspecified; Z68.43 Body mass index [BMI] 50.0-59.9, adult; E66.01 Morbid (severe) obesity due to excess calories; I10 Essential (primary) hypertension; J44.9 Chronic obstructive pulmonary disease, unspecified; R34 Anuria and oliguria; G47.33 Obstructive sleep apnea (adult) (pediatric); D64.9 Anemia, unspecified; E87.8 Other disorders of electrolyte and fluid balance, not elsewhere classified; R53.81 Other malaise; R56.9 Unspecified convulsions; R50.82 Postprocedural fever; E11.21 Type 2 diabetes mellitus with diabetic nephropathy; E11.40 Type 2 diabetes mellitus with diabetic neuropathy, unspecified; E11.65 Type 2 diabetes mellitus with hyperglycemia

== ENCOUNTER 2017-04-28 11:27 | Emergency (ER) | payer MEDICARE ==
[2017-04-21 10:51] VITALS: BMI 58.4
[~2017-04-28 11:27] MED LIST changes: +ZOFRAN4 MG PO
[2017-04-28 12:14] LABS: BASOPHILS 0.2 % (0-2); EOSINOPHILS 2.6 % (0-7); HEMATOCRIT 33.2 % (36.0-48.0); HEMOGLOBIN 10.7 g/dL (12-16); IMMATURE GRANULOCYTES 0.7 % (0-5); LYMPHOCYTES 30.4 % (15-50); MCHC 32.2 g/dL (31.0-37.0); MEAN PLATELET VOLUME 11.7 fL (7.4-10.4); NEUTROPHILS 58.1 % (40-80); RBC 3.69 10x6/uL (4.00-5.40); RDW 14.5 % (11.5-14.5); WBC 8.9 10x3/uL (4.8-10.8)
[2017-04-28 12:20] LABS: PLATELET COUNT 409 10x3/uL (130-400)
[2017-04-28 12:23] LABS: ALKALINE PHOSPHATASE 82 U/L (46-116); ALT (SGPT) 22 U/L (10-68); CALC OSMOLALITY 284 mosm/kg (275-300); CALCIUM 8.6 mg/dL (8.5-10.1); CARBON DIOXIDE 31.8 mmol/L (21.0-32.0); CHLORIDE - SERUM 105 mmol/L (98-107); CREATININE - SERUM 0.8 mg/dL (0.6-1.3); GLUCOSE 115 mg/dL (74-106); POTASSIUM - SERUM 3.5 mmol/L (3.5-5.1); PROTEIN - SERUM 7.4 g/dL (6.4-8.2); SODIUM 144 mmol/L (136-145); UREA NITROGEN 4 mg/dL (7-18); eGFR NON AFRICAN AMERICAN 83 mL/min (90-120)
== END 2017-04-28 13:06 | disposition home or self-care (01) ==
LOC: D.ER 11:27
PROVIDERS: Nurse Practitioner Family
DX: K94.20 Gastrostomy complication, unspecified (principal); J44.9 Chronic obstructive pulmonary disease, unspecified; E11.9 Type 2 diabetes mellitus without complications; Z79.4 Long term (current) use of insulin; I10 Essential (primary) hypertension

== ENCOUNTER 2017-05-14 11:11 | Emergency (ER) | payer MEDICARE ==
[2017-04-21 10:51] VITALS: BMI 58.4
[2017-05-14 11:59] LABS: ALBUMIN 3.9 g/dL (3.4-5.0); ANION GAP 13.5 mmol/L (8-16); BILIRUBIN - TOTAL 0.49 mg/dL (0.2-1.3); CALCIUM 9.1 mg/dL (8.5-10.1); CARBON DIOXIDE 27.8 mmol/L (21.0-32.0); CREATININE - SERUM 0.9 mg/dL (0.6-1.3); POTASSIUM - SERUM 4.3 mmol/L (3.5-5.1); PROTEIN - SERUM 8.3 g/dL (6.4-8.2)
[2017-05-14 12:07] LABS: APPEARANCE HAZY (CLEAR); BILIRUBIN NEGATIVE (NEGATIVE); COLOR YELLOW (YELLOW); GLUCOSE NEGATIVE (NEGATIVE); KETONE NEGATIVE (NEGATIVE); NITRITE NEGATIVE (NEGATIVE); PROTEIN 1+ mg/dL (NEGATIVE); SPECIFIC GRAVITY 1.015 (1.005-1.020); UROBILINOGEN NORMAL (NORMAL)
[2017-05-14 12:12] LABS: BACTERIA FEW /hpf (NONE SEEN); EPITHELIAL CELLS 0-5 /hpf (0-5); RED CELLS - URINE 0-5 /hpf (0-5); WHITE CELLS - URINE 0-5 /hpf (0-5)
[2017-05-14 12:50] LABS: BASOPHILS 0.3 % (0-2); EOSINOPHILS 3.3 % (0-7); HEMATOCRIT 36.6 % (36.0-48.0); HEMOGLOBIN 11.8 g/dL (12-16); IMMATURE GRANULOCYTES 0.1 % (0-5); LYMPHOCYTES 45.1 % (15-50); MCH 29.2 pg (26.0-34.0); MCHC 32.2 g/dL (31.0-37.0); MCV 90.6 fL (80.0-100.0); MEAN PLATELET VOLUME 11.9 fL (7.4-10.4); MONOCYTES 8.2 % (2-11); RBC 4.04 10x6/uL (4.00-5.40); RDW 14.5 % (11.5-14.5); WBC 9.3 10x3/uL (4.8-10.8)
[2017-05-14 12:52] LABS: PLATELET COUNT 265 10x3/uL (130-400)
[2017-05-14 12:55] LABS: HCG SERUM NEGATIVE (NEGATIVE)
== END 2017-05-14 15:56 | disposition home or self-care (01) ==
LOC: D.ER 11:11
PROVIDERS: Family Medicine; Nurse Practitioner Family
DX: R10.9 Unspecified abdominal pain (principal)

== ENCOUNTER 2017-06-19 19:47 | Emergency (ER) | payer MEDICARE ==
[2017-04-21 10:51] VITALS: BMI 58.4
== END 2017-06-19 23:55 | disposition home or self-care (01) ==
LOC: D.ER 19:47
DX: S20.219A Contusion of unspecified front wall of thorax, initial encounter (principal); V43.52XA Car driver injured in collision with other type car in traffic accident, initial encounter; Y93.89 Activity, other specified; Y92.410 Unspecified street and highway as the place of occurrence of the external cause; S80.812A Abrasion, left lower leg, initial encounter; S01.01XA Laceration without foreign body of scalp, initial encounter; S06.0X0A Concussion without loss of consciousness, initial encounter

== ENCOUNTER → 2017-07-20 10:36 | Outpatient (CLI) | payer MEDICARE ==
[2017-04-21 10:51] VITALS: BMI 58.4
[2017-07-20 11:21] LABS: BASOPHILS 0.5 % (0-2); EOSINOPHILS 3.3 % (0-7); HEMATOCRIT 40.9 % (36.0-48.0); HEMOGLOBIN 13.6 g/dL (12-16); IMMATURE GRANULOCYTES 0.2 % (0-5); LYMPHOCYTES 38.3 % (15-50); MCH 29.1 pg (26.0-34.0); MCHC 33.3 g/dL (31.0-37.0); MCV 87.4 fL (80.0-100.0); MEAN PLATELET VOLUME 12.1 fL (7.4-10.4); MONOCYTES 5.9 % (2-11); NEUTROPHILS 51.8 % (40-80); PLATELET COUNT 238 10x3/uL (130-400); RBC 4.68 10x6/uL (4.00-5.40); RDW 13.7 % (11.5-14.5); WBC 8.7 10x3/uL (4.8-10.8)
[2017-07-20 11:49] LABS: CREATININE - SERUM 0.8 mg/dL (0.6-1.3)
== END | disposition home or self-care (01) ==
LOC: D.LAB 10:36
PROVIDERS: Surgery
DX: Z01.812 Encounter for preprocedural laboratory examination (principal); Z00.00 Encounter for general adult medical examination without abnormal findings; E11.9 Type 2 diabetes mellitus without complications; K21.9 Gastro-esophageal reflux disease without esophagitis; I50.9 Heart failure, unspecified

== ENCOUNTER 2018-06-05 10:29 | Emergency (ER) | payer MEDICARE ==
[~2018-06-05] VITALS: Ht 167.6 cm; Wt 88.6 kg
[2018-06-05 10:39] VITALS: Ht 167.6 cm; Wt 88.6 kg
[2018-06-05 11:43] LABS: HEMATOCRIT 39.1 % (36.0-48.0); HEMOGLOBIN 13.2 g/dL (12-16); MCH 30.6 pg (26.0-34.0); MCHC 33.8 g/dL (31.0-37.0); MCV 90.7 fL (80.0-100.0); MEAN PLATELET VOLUME 11.8 fL (7.4-10.4); PLATELET COUNT 214 10x3/uL (130-400); RBC 4.31 10x6/uL (4.00-5.40); RDW 13.9 % (11.5-14.5); WBC 21.9 10x3/uL (4.8-10.8)
[2018-06-05 11:47] LABS: ALBUMIN 3.8 g/dL (3.4-5.0); ALKALINE PHOSPHATASE 97 U/L (46-116); ALT (SGPT) 24 U/L (10-68); BILIRUBIN - TOTAL 1.03 mg/dL (0.2-1.3); CALC OSMOLALITY 274 mosm/kg (275-300); CALCIUM 9.1 mg/dL (8.5-10.1); CARBON DIOXIDE 27.7 mmol/L (21.0-32.0); CHLORIDE - SERUM 101 mmol/L (98-107); CREATININE - SERUM 0.8 mg/dL (0.6-1.3); POTASSIUM - SERUM 3.8 mmol/L (3.5-5.1); PROTEIN - SERUM 8.5 g/dL (6.4-8.2); SODIUM 138 mmol/L (136-145); UREA NITROGEN 11 mg/dL (7-18); eGFR NON AFRICAN AMERICAN 83 mL/min (90-120)
[2018-06-05 11:48] LABS: GLUCOSE 107 mg/dL (74-106)
[2018-06-05 12:03] LABS: LYMPHOCYTES 22 % (15-50); MONOCYTES 3 % (2-11); NEUTROPHILS 71 % (40-80); PLATELET ESTIMATE NORMAL; ROULEAUX OCC
[2018-06-05 15:07] LABS: APPEARANCE CLEAR (CLEAR); BILIRUBIN NEGATIVE (NEGATIVE); COLOR YELLOW (YELLOW); GLUCOSE NEGATIVE (NEGATIVE); KETONE NEGATIVE (NEGATIVE); NITRITE NEGATIVE (NEGATIVE); PROTEIN NEGATIVE (NEGATIVE); UROBILINOGEN NORMAL (NORMAL)
[2018-06-05 15:09] LABS: RED CELLS - URINE OCC /hpf (0-5); WHITE CELLS - URINE 0-5 /hpf (0-5)
[2018-06-05 15:10] LABS: BACTERIA MODERATE /hpf (NONE SEEN); EPITHELIAL CELLS OCC /hpf (0-5); MUCUS <1+ /lpf (NONE SEEN)
[2018-06-05] MEDS ORDERED: VIBRAMYCIN 100100 MG PO (15:31)
[2018-06-05] MEDS ORDERED: PHENERGAN DM SYR5 ML PO (15:34)
[2018-06-05] MEDS ORDERED: CIPRODEX OTIC7.5 ML LEFT EAR (15:34)
[2018-06-05] MEDS ORDERED: TAMIFLU75 MG PO (15:35)
[2018-06-05 17:00] VITALS: BP 111/54
== END 2018-06-05 17:00 | disposition home or self-care (01) ==
LOC: D.ER 10:29
PROVIDERS: Emergency Medicine
DX: H66.92 Otitis media, unspecified, left ear (principal); D72.829 Elevated white blood cell count, unspecified; J06.9 Acute upper respiratory infection, unspecified

== ENCOUNTER 2018-08-05 07:38 | Emergency (ER) | payer MEDICARE ==
[~2018-08-05] VITALS: Ht 167.6 cm; Wt 89.5 kg
[~2018-08-05 07:38] MED LIST changes: +CIPRODEX OTIC7.5 ML LEFT EAR; +PHENERGAN DM SYR5 ML PO; +TAMIFLU75 MG PO; +VIBRAMYCIN 100100 MG PO
[2018-08-05 07:40] VITALS: Ht 167.6 cm; Wt 89.5 kg
[2018-08-05 08:01] LABS: BASOPHILS 0.3 % (0-2); EOSINOPHILS 5.1 % (0-7); HEMOGLOBIN 12.7 g/dL (12-16); IMMATURE GRANULOCYTES 0.1 % (0-5); MCH 30.5 pg (26.0-34.0); MCHC 34.3 g/dL (31.0-37.0); MCV 88.9 fL (80.0-100.0); MEAN PLATELET VOLUME 10.8 fL (7.4-10.4); MONOCYTES 9.9 % (2-11); NEUTROPHILS 47.6 % (40-80); PLATELET COUNT 244 10x3/uL (130-400); RBC 4.16 10x6/uL (4.00-5.40); RDW 13.6 % (11.5-14.5); WBC 10.4 10x3/uL (4.8-10.8)
[2018-08-05 08:10] LABS: APTT 33.8 SECONDS (22.8-39.4); INR 1.11 (0.85-1.17); PROTIME 13.8 SECONDS (11.6-15.0)
[2018-08-05 08:32] LABS: ALBUMIN 3.9 g/dL (3.4-5.0); ALKALINE PHOSPHATASE 80 U/L (46-116); ALT (SGPT) 18 U/L (10-68); CALC OSMOLALITY 277 mosm/kg (275-300); CHLORIDE - SERUM 103 mmol/L (98-107); CREATININE - SERUM 0.9 mg/dL (0.6-1.3); GLUCOSE 102 mg/dL (74-106); PROTEIN - SERUM 7.8 g/dL (6.4-8.2); SODIUM 140 mmol/L (136-145); UREA NITROGEN 10 mg/dL (7-18); eGFR NON AFRICAN AMERICAN 72 mL/min (90-120)
[2018-08-05 08:45] LABS: CKMB 0.1 U/L (0.0-3.6); CREATINE KINASE 55 UL (21-215); PRO BNP 113 pg/mL (0-125); TROPONIN-I < 0.017 ng/mL (0.000-0.060)
[2018-08-05] MEDS ORDERED: MEDROL DOSE PACK4 MG PO (09:11)
[2018-08-05 09:42] VITALS: BP 95/56
== END 2018-08-05 09:44 | disposition home or self-care (01) ==
LOC: D.ER 07:38
PROVIDERS: Family Medicine
DX: J45.901 Unspecified asthma with (acute) exacerbation (principal)

== ENCOUNTER → 2018-08-07 08:30 | Outpatient (CLI) | payer MEDICARE ==
[2018-08-05 07:40] VITALS: BMI 31.8
[~2018-08-07 08:30] MED LIST changes: +CLEOCIN HCL300 MG PO; +HYDROCODON-ACE1 EAC7 PO; +MEDROL DOSE PACK4 MG PO
== END | disposition home or self-care (01) ==
LOC: D.CT 08:30
PROVIDERS: ATTEND Surgery
DX: K43.9 Ventral hernia without obstruction or gangrene (principal)

== ENCOUNTER 2018-08-08 09:23 | Emergency (ER) | payer MEDICARE ==
[~2018-08-08] VITALS: Ht 167.6 cm; Wt 89.1 kg
[~2018-08-08 09:23] MED LIST changes: -CLEOCIN HCL300 MG PO; -HYDROCODON-ACE1 EAC7 PO
[2018-08-08 09:27] VITALS: Ht 167.6 cm; Wt 89.1 kg
[2018-08-08] MEDS ORDERED: CLEOCIN HCL300 MG PO (09:52)
[2018-08-08 10:08] VITALS: BP 118/63
== END 2018-08-08 10:08 | disposition home or self-care (01) ==
LOC: D.ER 09:23
DX: E11.9 Type 2 diabetes mellitus without complications (principal); I10 Essential (primary) hypertension; J44.9 Chronic obstructive pulmonary disease, unspecified; L72.3 Sebaceous cyst

== ENCOUNTER 2018-08-13 07:55 | Day surgery (SDC) | payer MEDICARE ==
[2018-08-10 10:20] LABS: HEMOGLOBIN 11.9 g/dL (12-16); MCH 30.6 pg (26.0-34.0); MEAN PLATELET VOLUME 10.2 fL (7.4-10.4); RBC 3.89 10x6/uL (4.00-5.40); RDW 13.2 % (11.5-14.5); WBC 8.6 10x3/uL (4.8-10.8)
[2018-08-10 10:32] LABS: CALCIUM 8.9 mg/dL (8.5-10.1); CREATININE - SERUM 0.9 mg/dL (0.6-1.3)
[~2018-08-13] VITALS: Ht 167.6 cm; Wt 90.3 kg
[~2018-08-13 07:55] MED LIST changes: +CLEOCIN HCL300 MG PO
[2018-08-13 10:08] VITALS: BP 114/66; Ht 167.6 cm; Wt 90.3 kg
[2018-08-13] MEDS ORDERED: HYDROCODON-ACE1 EAC7 PO (14:03)
--- NOTE | 2018-08-13 15:15 | NUR ---
1505 DR. RUMA OLIVER, GIVES MOTHER REPORT.
--- NOTE | 2018-08-13 16:26 | NUR ---
1625 PILLOW PROVIDED FOR PT PER REQUEST. PT. DEEP BREATHED AND COUGHED.
--- NOTE | 2018-08-13 18:19 | NUR ---
181 RELEASED IN , MOTHER DETASSELER HOME.
== END 2018-08-13 18:15 | disposition home or self-care (01) ==
LOC: D.OPS 07:55 → D.PAN 11:00 → D.OPS 11:00
PROVIDERS: Anesthesiology; ATTEND Surgery
DX: K43.0 Incisional hernia with obstruction, without gangrene (principal); Z01.812 Encounter for preprocedural laboratory examination

== ENCOUNTER 2018-08-17 10:40 | Inpatient (IN) | payer MEDICARE ==
[2018-08-17] VITALS (8 sets, daily range): BP systolic 106–142; BP diastolic 43–87; BMI 36.5
[~2018-08-17] VITALS: Ht 167.6 cm; Wt 105.7 kg
[~2018-08-17 10:40] MED LIST changes: +HYDROCODON-ACE1 EAC7 PO
[2018-08-17 11:27] LABS: BASOPHILS 0.1 % (0-2); EOSINOPHILS 1.5 % (0-7); HEMOGLOBIN 11.5 g/dL (12-16); IMMATURE GRANULOCYTES 0.3 % (0-5); MCH 30.9 pg (26.0-34.0); MCHC 34.8 g/dL (31.0-37.0); MCV 88.7 fL (80.0-100.0); MEAN PLATELET VOLUME 10.8 fL (7.4-10.4); MONOCYTES 4.5 % (2-11); NEUTROPHILS 83.6 % (40-80); PLATELET COUNT 265 10x3/uL (130-400); RBC 3.72 10x6/uL (4.00-5.40); RDW 13.2 % (11.5-14.5); WBC 18.1 10x3/uL (4.8-10.8)
[2018-08-17 11:41] LABS: APPEARANCE HAZY (CLEAR); BILIRUBIN NEGATIVE (NEGATIVE); COLOR DK YELLOW (YELLOW); GLUCOSE NEGATIVE (NEGATIVE); KETONE SMALL mg/dL (NEGATIVE); NITRITE NEGATIVE (NEGATIVE); PROTEIN 1+ mg/dL (NEGATIVE)
[2018-08-17 11:43] LABS: ALBUMIN 2.7 g/dL (3.4-5.0); ALKALINE PHOSPHATASE 79 U/L (46-116); ALT (SGPT) 11 U/L (10-68); AMYLASE - SERUM 25 U/L (25-115); CALC OSMOLALITY 267 mosm/kg (275-300); CALCIUM 8.9 mg/dL (8.5-10.1); CARBON DIOXIDE 28.6 mmol/L (21.0-32.0); CHLORIDE - SERUM 95 mmol/L (98-107); CREATININE - SERUM 0.8 mg/dL (0.6-1.3); GLUCOSE 127 mg/dL (74-106); POTASSIUM - SERUM 3.7 mmol/L (3.5-5.1); PROTEIN - SERUM 7.7 g/dL (6.4-8.2); SODIUM 132 mmol/L (136-145); UREA NITROGEN 15 mg/dL (7-18); eGFR NON AFRICAN AMERICAN 82 mL/min (90-120)
[2018-08-17 11:43] LABS: BACTERIA MANY /hpf (NONE SEEN); HYALINE CAST RARE /lpf (NONE SEEN); MUCUS <1+ /lpf (NONE SEEN); RED CELLS - URINE 0-5 /hpf (0-5)
[2018-08-17 11:46] LABS: LIPASE 49 U/L (73-393)
--- NOTE | 2018-08-17 12:31 | NUR ---
PT WARM TO THE TOUCH, TEMP RECHECKED 101.4. EDP NOTIFIED. VERBAL ORDER RECEIVED FOR PO TYLENOL.
--- NOTE | 2018-08-17 16:03 | NUR ---
PT SIGNS CONSENT FOR SURGERY, ANESTHESIA, AND BLOOD AT THIS TIME. FORMS SENT TO SURGERY WITH PATIENT.
--- NOTE | 2018-08-17 16:39 | NUR ---
I have reviewed this patient and I concur with the Shift Assessment completed by the Licensed Practical Nurse today this shift.
--- NOTE | 2018-08-17 19:40 | NUR ---
PT ARRIVED FROM OR. DR. HENDRIX AT BEDSIDE. NEW ORDERS PROVIDED. INITIATING 2L LR BOLUS NOW. CVP MONITORING INITIATED. PT STATES THAT SHE IS IN 8-10/10 ABD PAIN. REPOSITIONED FOR COMFORT. EDUCATED HER TO APPLY GENTLE PRESSURE TO ABD INCISION WHEN MOVING OR COUGHING WITH A PILLOW. A&O X4 WITH NO SIGNS OF ACUTE DISTRESS AT THIS TIME. NGT LIS. S1S2 AUDIBLE, HR 103 SINUS TACH SHOWING ON MONITOR. LT SUBCLAVIAN CVL NOTED, DRESSING INTACT, PLACED BY DR. HENDRIX IN OR, WILL LABEL. RR SHALLOW, NC @ 2L/MIN, CLEAR LUNG SOUNDS HEARD BILAT THROUGHOUT ALL LOBES. ABD IS TENDER, MIDLINE INCISION NOTED WITH CHUCK AND WOUND VAC. WOUND VAC @ 125 MMHG. LABELED UPPER JEF DRAIN "JEF #1" AND THE LOWER "JEF #2" BOTH ARE LOCATED IN THE LLQ AND DRAINING BLOODY DRAINAGE, DRESSING CDI, COMPRESSED. BS HYPOACTIVE X4, SHE STATES THAT SHE HAS NOT PASSED ANY GAS AT THIS TIME. HALE CATH INTACT DRAINING CONCENTRATED URINE. RADIAL AND PEDAL PULSES PALP. R UPPER ARM PIV NOTED. CALL LIGHT IN REACH. ADMIN ASSESSMENT AND HX COMPLETE AT THIS TIME. CALL LIGHT IN REACH, BED IN LOWEST POSITION. WILL CONT TO MONITOR CLOSELY.
--- NOTE | 2018-08-17 20:15 | NUR ---
T&C SENT TO LAB.
--- NOTE | 2018-08-17 21:00 | NUR ---
FAMILY AT BEDSIDE. THEY REQUEST TO SPEAK WITH DR. HENDRIX AT THIS TIME. I INFORMED THEM THAT HE IS NOT CURRENTLY AT THE FACILITY, BUT THAT I WOULD INFORM THE AM NURSE OF THEIR QUESTIONS/CONCERNS. FAMILY UNDERSTOOD. PT IS A&O X4, SHE DOES COMPLAIN OF PAIN AT THIS TIME. TORADOL SHOT ADMIN. IV ABX INITIATED. ICE PACKS BROUGHT TO PT PER REQUEST. CALL LIGHT IN REACH, BED IN LOWEST POSITION, TIGHT ALARMS SET ON ICU MONITORS. WILL CONT WITH POC.
--- NOTE | 2018-08-17 23:00 | NUR ---
REASSESSMENT COMPLETE. JEF DRAINS EMPTIED. VSS. ABD TENDER TO TOUCH, BS HYPOACTIVE X4. SHE DENIES ANY NEEDS AT THIS TIME. SEE FLOWSHEET FOR FURTHER DETAILS. WILL CONT CLOSE OBSERVATION IN ICU. CALL LIGHT IN REACH.
[2018-08-18] VITALS (11 sets, daily range): BP systolic 104–122; BP diastolic 58–89; Ht 167.6 cm; Wt 105.7 kg
--- NOTE | 2018-08-18 01:00 | NUR ---
REPOSITIONED FOR COMFORT. SHE DENIES ANY FURTHER NEEDS AT THIS TIME. JEF DRAINING BLOODY DRAINAGE, COMPRESSED. VSS. WILL CONT WITH POC.
--- NOTE | 2018-08-18 03:00 | NUR ---
REASSESSMENT COMPLETE. PT STATES THAT SHE HAS NOT EXPRESSED ANY GAS AT THIS TIME. BS HYPOACTIVE X4. VSS. REPOSITIONED FOR COMFORT. SEE FLOWSHEET FOR FURTHER DETIALS. VSS. WILL CONT WITH POC.
--- NOTE | 2018-08-18 04:26 | NUR ---
PT STATES THAT SHE IS HAVING 9-10/10 PAIN. PRN WREATH INSPECTOR INITIATED. EDUCATED PT ON HOW TO USE WREATH INSPECTOR BUTTON. SHE STATES THAT SHE UNDERSTANDS. WREATH INSPECTOR BUTTON AND CALL LIGHT IN REACH. NO FURTHER NEEDS.
--- NOTE | 2018-08-18 05:00 | NUR ---
HCG BATH PROVIDED. REPOSITIONED FOR COMFORT. IV TUBING SWAB CAPPED AND LABELED. VSS. HALE CARE PROVIDED. NO FURTHER NEEDS AT THIS TIME. WILL CONT WITH POC.
[2018-08-18 05:55] LABS: BASOPHILS 0.1 % (0-2); EOSINOPHILS 0.4 % (0-7); HEMATOCRIT 33.1 % (36.0-48.0); HEMOGLOBIN 11.2 g/dL (12-16); IMMATURE GRANULOCYTES 0.4 % (0-5); LYMPHOCYTES 6.8 % (15-50); MCH 29.9 pg (26.0-34.0); MCHC 33.8 g/dL (31.0-37.0); MCV 88.5 fL (80.0-100.0); MEAN PLATELET VOLUME 10.9 fL (7.4-10.4); MONOCYTES 6.9 % (2-11); NEUTROPHILS 85.4 % (40-80); PLATELET COUNT 274 10x3/uL (130-400); RBC 3.74 10x6/uL (4.00-5.40); RDW 13.5 % (11.5-14.5)
[2018-08-18 05:56] LABS: WBC 12.7 10x3/uL (4.8-10.8)
[2018-08-18 06:05] LABS: ALKALINE PHOSPHATASE 54 U/L (46-116); BILIRUBIN - TOTAL 1.24 mg/dL (0.2-1.3); CALCIUM 7.8 mg/dL (8.5-10.1); CHLORIDE - SERUM 101 mmol/L (98-107); CREATININE - SERUM 0.8 mg/dL (0.6-1.3); SODIUM 135 mmol/L (136-145); UREA NITROGEN 15 mg/dL (7-18); eGFR NON AFRICAN AMERICAN 82 mL/min (90-120)
[2018-08-18 06:06] LABS: CALC OSMOLALITY 274 mosm/kg (275-300); GLUCOSE 179 mg/dL (74-106)
[2018-08-18 06:07] LABS: ALBUMIN 1.6 g/dL (3.4-5.0); ALT (SGPT) 17 U/L (10-68); POTASSIUM - SERUM 4.6 mmol/L (3.5-5.1); PROTEIN - SERUM 5.6 g/dL (6.4-8.2)
--- NOTE | 2018-08-18 07:33 | OP ---
PATIENT NAME: YRN ECHEVARRIA MEDICAL RECORD: [id number] :73 LOCATION:.[facility] D.2303 ADMISSION DATE:08/17/18 SURGEON: APRIL HENDRIX MD DATE OF OPERATION: 08/17/2018 SURGEON: April Hendrix MD (JJ) PREOPERATIVE DIAGNOSES: Postoperative wound infection of the skin, subcutaneous tissue and mesh. The patient has history of previous laparoscopic incisional incarcerated hernia repair with mesh, and intra-abdominal abscess. POSTOPERATIVE DIAGNOSES: Postoperative wound infection of the skin, subcutaneous tissue and mesh. The patient has history of previous laparoscopic incisional incarcerated hernia repair with mesh, and intra-abdominal abscess. PROCEDURE PERFORMED: 1. Diagnostic laparoscopy. 2. Exploratory laparotomy with small bowel resection and explantation of mesh, washout of intraabdominal abscess, and placement of left subclavian CVL. ANESTHESIA: General. COMPLICATIONS: None. SPECIMENS: Small bowel resection, abdominal fluid for culture. Case was grossly contaminated. ESTIMATED BLOOD LOSS: 200 cc. OPERATIVE COURSE: After consent was obtained, the patient was taken urgently to the operating room. A time-out was taken to confirm the correct patient and procedure. General anesthesia was given. The abdomen was prepped and draped in typical sterile fashion. Local anesthetic was injected in the left upper quadrant, the previous trocar incision again using a 5-mm bladeless optical trocar, the abdomen was entered under direct laparoscopic vision. Adequate pneumoperitoneum was achieved. There were several 100 cc of liquid pus in the abdomen. A Lukens trap was placed in the laparoscopic suction device. The fluid was suctioned. The fluid was sent for Gram stain culture and sensitivity. The Lukens trap was removed. The main portion was grossly irrigated and suctioned. There was fibrinous exudate covering the entire anterior abdominal wall including the mesh as well as the greater omentum and anterior surface of the liver and stomach, transverse colon. There was no succuss identified in the abdomen. Again, the abdomen was copiously irrigated and suctioned. The adhesions were the bowel was boggy and indurated and difficult to maneuver laparoscopically. Adequate pneumoperitoneum was achieved, two additional 5-mm trocars were placed in the left lateral quadrants and the previous trocar sites. After the abdomen could be irrigated and suctioned, the mesh was taken off the anterior wall. The 5-mm trocar was upsized to a 12-mm trocar. The mesh was removed through the trocar and sent for pathology. There was a significant amount of necrotic tissue above the hernia. The infection was throughout the subcutaneous tissue involving the previous abdominal wall mesh from a prior incisional hernia repair. At this time, we decided to open the midline over the hernia defect to allow for full examination of the intestines. Skin incision was made with 15 OPERATIVE REPORT [id number] YRN ECHEVARRIA blade scalpel. Dissection using electrocautery through the skin and subcutaneous tissue, the abdomen was entered under direct vision. The abdomen was desufflated. Trocars were removed. The Te retractor was placed into the abdominal incision. The wound was irrigated with approximately 4 liters of warm normal saline. The small bowel was extracorporealized. It was run from the ligament of Treitz to the terminal ileum. There was one loop of densely adherent bowel to the previous mesh with multiple serosal defects. At this time, I decided to perform a small bowel resection of approximately 5 cm and [id number] functional enterotomies were created using the linear cutting 75-mm stapler, a [id number]-[id number]-[id number] anastomosis was performed. A second firing of the stapler was used to complete the small bowel anastomosis. The mesentery was taken with blue load vi. The staple line was imbricated using 3-0 Vicryl suture. Additional irrigation of the abdominal cavity was performed at this time using warm normal saline. The transverse colon was inspected. Although there was a considerable amount of fibrinous exudate on the transverse colon, there were no serosal defects noted. The transverse colon was the incarcerated portion, intestine on the previous hernia repair and 2 JEF drains were then placed in the abdomen through the left lateral quadrant trocar sites, one into the left upper quadrant posterior to the spleen and one to the left lower quadrant towards the pelvis. The mesh from the previous incisional hernia was excised due to the skin and soft tissue involvement of infection including the mesh. At this time a primary hernia repair was performed using a #1 Prolene. A silver wound VAC was placed into the subcutaneous tissue and placed to negative pressure wound therapy with good seal. At this time, the case was terminated. All needle and instrument counts were correct. The left chest was then prepped and draped in typical sterile fashion. The left subclavian vein was cannulated on the first pass. A guidewire was placed. The needle was removed. A dilator was passed with the wire in a standard Seldinger fashion. A Biopatch was placed. It was secured to skin using 2-0 Prolene suture and sterile Tegaderm dressings. At the end of the case, all needle and instrument counts were correct. No complications occurred. The patient was extubated and transferred to the PACU in stable condition. TRANSINT:[id number] Voice Confirmation ID: [id number] DOCUMENT ID: [id number] APRIL HENDRIX MD at 0733 CC: [id number] DICTATION DATE: 08/17/181921 INJECTOR ASSEMBLER: 08/18/18 0014 ADM IN [facility] [address] [place] [address]
--- NOTE | 2018-08-18 07:50 | NUR ---
UP IN BED AWAKE AT THIS TIME. NO ACUTE DISTRESS NOTED. VSS. CALL LIGHT IN REACH. WILL CONTINUE PLAN OF CARE.
--- NOTE | 2018-08-18 09:53 | NUR ---
ICE PACKS CHANGED OUT AT THIS TIME AND PLACED TO ABDOMEN PER PT REQUEST. ALSO PT COMPLAINT OF COUGH, SURGEON NOTIFIED, ORDERS PLACED. ALSO SURGEON STATED OKAY FOR PT TO HAVE SIPS OF WATER AND ICE CHIPS. AND TRANSFER TO FLOOR. NO ACUTE DISTRESS NOTED. WILL CONTINUE PLAN OF CARE.
--- NOTE | 2018-08-18 11:48 | NUR ---
UP IN BED ON CELLPHONE AT THIS TIME. DENIES ANY NEEDS. NO ACUTE DISTRESS NOTED. VSS. WILL CONTINUE PLAN OF CARE.
--- NOTE | 2018-08-18 13:25 | NUR ---
UP IN BED AWAKE WATCHING TV AT THIS TIME. NO ACUTE DISTRESS NOTED. CALL LIGHT IN REACH. ALSO NOTED OFFERED PT BED BATH, REFUSED STATING SHE FELT CLEAN ALREADY. WILL CONTINUE PLAN OF CARE.
--- NOTE | 2018-08-18 14:16 | NUR ---
RECIEVED PT FROM ICU, NG TUBE TO RIGHT NOSTRIL. ATTACHED TO LIWS, WOUND VAC TO ABD BELOW THE UMBILICUS, CHUCK TO MIDLINE, SCDS PRESENT, HALE CATHETER PRESENT, LILLY COLORED URINE, MORPHINE PRIVATE DUTY AIDE AT 04/26/09. DENIES ANY OTHER NEEDS OR DISCOMFORTS, BED LOWERED AND LOCKED, CALL LIGHT WITHIN REACH. CPOC
--- NOTE | 2018-08-18 14:21 | NUR ---
TRANSFERRED TO 2233 AT THIS TIME VIA BED ACCOMPANIED BY HOSPITAL STAFF AND VISITORS. NO ACUTE DISTRESS NOTED. VSS. REPORT GIVEN TO RECIEVING NURSE. NO FURTHER ACTIONS.
--- NOTE | 2018-08-18 19:30 | NUR ---
RECEIVED REPORT, ASSUMED CARE, A&O, DENIES NEEDS, ASSESSMENT COMPLETE, COMPLAINS OF ABDOMINAL PAIN AND COUGHING, REINFORCED THE IMPORTANCE OF COUGHING AND BRACING ABDOMEN WITH PILLOW, CALL LIGHT IN REACH, BOTH JEF DRAINS TO LLQ ARE COMPRESSED BLOODY DRAINAGE, HALE TO GRAVITY, L SUBCLAVIAN C/D/I, WOUND VAC TO ABDOMEN INTACT, BED LOWEST POSITION, WILL CONTINUE POC
[2018-08-19] VITALS (7 sets, daily range): BP systolic 102–125; BP diastolic 55–71
--- NOTE | 2018-08-19 07:45 | NUR ---
AAOX4. ON 2LPM VIA NC, NG TUBE PRESENT, NO DRANIAGE PRESENT IN CANISTER, WOUND VAC TO EPIGASTRIC REGION, MIDLINE INCISION WITH CHUCK PRESENT, NO DRAINAGE, JEF DRAINS X2 TO LEFT UPPER AND LOWER ABD, HALE CATHETER PRESENT, DENIES ANY CURRENT NEEDS OR DISCOMFORTS, BED LOWERED AND LOCKED, CALL LIGHT WITHIN REACH. CPOC
--- NOTE | 2018-08-19 09:43 | NUR ---
AAOX4. NG TUBE DISCONTINUED PER ORDER, TOLERATED WELL, DENIES ANY NEEDS OR DISCOMFORTS. BED LOWERED AND LOCKED, CALL LIGHT WITHIN REACH. CPOC
[2018-08-19 09:52] LABS: CALCIUM 7.9 mg/dL (8.5-10.1); CARBON DIOXIDE 28.7 mmol/L (21.0-32.0); CHLORIDE - SERUM 103 mmol/L (98-107); CREATININE - SERUM 0.6 mg/dL (0.6-1.3); SODIUM 135 mmol/L (136-145); eGFR NON AFRICAN AMERICAN > 90 mL/min (90-120)
[2018-08-19 09:54] LABS: CALC OSMOLALITY 268 mosm/kg (275-300); GLUCOSE 96 mg/dL (74-106); POTASSIUM - SERUM 3.7 mmol/L (3.5-5.1); UREA NITROGEN 11 mg/dL (7-18)
[2018-08-19 10:19] LABS: BASOPHILS 0.1 % (0-2); EOSINOPHILS 5.5 % (0-7); IMMATURE GRANULOCYTES 0.4 % (0-5); LYMPHOCYTES 13.3 % (15-50); MCH 29.8 pg (26.0-34.0); MCHC 33.3 g/dL (31.0-37.0); MCV 89.3 fL (80.0-100.0); MEAN PLATELET VOLUME 10.3 fL (7.4-10.4); MONOCYTES 7.3 % (2-11); NEUTROPHILS 73.4 % (40-80); PLATELET COUNT 307 10x3/uL (130-400); WBC 13.9 10x3/uL (4.8-10.8)
[2018-08-19 10:26] LABS: RBC 2.89 10x6/uL (4.00-5.40)
[2018-08-19 10:27] LABS: HEMATOCRIT 25.8 % (36.0-48.0); HEMOGLOBIN 8.6 g/dL (12-16)
--- NOTE | 2018-08-19 16:23 | NUR ---
I have reviewed this patient and I concur with the Shift Assessment completed by the Licensed Practical Nurse today this shift.
[2018-08-19 19:47] LABS: APPEARANCE HAZY (CLEAR); BILIRUBIN 1+ (NEGATIVE); COLOR DK YELLOW (YELLOW); GLUCOSE NEGATIVE (NEGATIVE); KETONE SMALL mg/dL (NEGATIVE); NITRITE NEGATIVE (NEGATIVE); PROTEIN 1+ mg/dL (NEGATIVE)
[2018-08-19 19:49] LABS: BACTERIA MODERATE /hpf (NONE SEEN); EPITHELIAL CELLS 0-5 /hpf (0-5); RED CELLS - URINE 25-50 /hpf (0-5); WHITE CELLS - URINE 0-5 /hpf (0-5)
[2018-08-19 19:50] LABS: MUCUS <1+ /lpf (NONE SEEN)
--- NOTE | 2018-08-20 01:20 | NUR ---
I have reviewed this patient and I concur with the Shift Assessment completed by the Licensed Practical Nurse today this shift.
[2018-08-20 03:45] VITALS: BP 110/66
[2018-08-20 05:54] LABS: BASOPHILS 0.2 % (0-2); EOSINOPHILS 5.9 % (0-7); HEMATOCRIT 25.8 % (36.0-48.0); HEMOGLOBIN 8.6 g/dL (12-16); IMMATURE GRANULOCYTES 0.5 % (0-5); LYMPHOCYTES 18.7 % (15-50); MCH 30.4 pg (26.0-34.0); MCHC 33.3 g/dL (31.0-37.0); MCV 91.2 fL (80.0-100.0); MEAN PLATELET VOLUME 10.1 fL (7.4-10.4); NEUTROPHILS 66.7 % (40-80); PLATELET COUNT 345 10x3/uL (130-400); RBC 2.83 10x6/uL (4.00-5.40); WBC 12.1 10x3/uL (4.8-10.8)
[2018-08-20 06:07] LABS: CALC OSMOLALITY 272 mosm/kg (275-300); CALCIUM 7.9 mg/dL (8.5-10.1); CARBON DIOXIDE 27.8 mmol/L (21.0-32.0); CHLORIDE - SERUM 102 mmol/L (98-107); CREATININE - SERUM 0.7 mg/dL (0.6-1.3); GLUCOSE 97 mg/dL (74-106); POTASSIUM - SERUM 3.2 mmol/L (3.5-5.1); SODIUM 137 mmol/L (136-145); UREA NITROGEN 9 mg/dL (7-18); eGFR NON AFRICAN AMERICAN > 90 mL/min (90-120)
[2018-08-20 08:42] VITALS: BP 173/94
--- NOTE | 2018-08-20 10:59 | NUR ---
MORNING ASSESSMENT COMPLETE. SEE ASSESMENT FLOWSHEET FOR FURTHER DETAILS. PT LYING IN BED AAO X4 TO PERSON, PLACE, TIME, AND SITUATION. DENIES NEEDS AT THIS TIME. CL IN REACH. SIDE RAILS UP X3 FOR PT SAFETY. BED IN LOWEST POSITION.
[2018-08-20 13:27] VITALS: BP 111/68
--- NOTE | 2018-08-20 15:15 | NUR ---
NUTRITION F/U CHART REVIEWED. CLEAR LIQUID DIET STARTED. WILL MONITOR DIET ADVANCEMENT, PO INTAKE. RD FOLLOWING
--- NOTE | 2018-08-20 15:48 | NUR ---
Wound vac dressing changed. Measurements are 4cm x 2cdm x 7cm. No odor noted. Small amount of serosanguinous drainage note. Used one piece silver foam. Pt tolerated well.
[2018-08-20 18:36] VITALS: BP 126/76
[2018-08-20 21:12] VITALS: BP 116/60
[2018-08-21 01:43] VITALS: BP 115/69
--- NOTE | 2018-08-21 04:25 | NUR ---
I have reviewed this patient and I concur with the Shift Assessment completed by the Licensed Practical Nurse today this shift.
[2018-08-21 05:31] VITALS: BP 112/73
[2018-08-21 06:52] LABS: CALC OSMOLALITY 276 mosm/kg (275-300); CALCIUM 8.2 mg/dL (8.5-10.1); CHLORIDE - SERUM 104 mmol/L (98-107); CREATININE - SERUM 0.6 mg/dL (0.6-1.3); GLUCOSE 102 mg/dL (74-106); POTASSIUM - SERUM 3.5 mmol/L (3.5-5.1); SODIUM 139 mmol/L (136-145); UREA NITROGEN 9 mg/dL (7-18); VANCOMYCIN - TROUGH 6.4 ug/mL (10.0-20.0); eGFR NON AFRICAN AMERICAN > 90 mL/min (90-120)
[2018-08-21 07:12] LABS: BASOPHILS 0.2 % (0-2); HEMATOCRIT 25.3 % (36.0-48.0); HEMOGLOBIN 8.4 g/dL (12-16); IMMATURE GRANULOCYTES 1.2 % (0-5); LYMPHOCYTES 24.6 % (15-50); MCH 30.1 pg (26.0-34.0); MCHC 33.2 g/dL (31.0-37.0); MCV 90.7 fL (80.0-100.0); MEAN PLATELET VOLUME 10.2 fL (7.4-10.4); MONOCYTES 11.3 % (2-11); NEUTROPHILS 57.7 % (40-80); PLATELET COUNT 406 10x3/uL (130-400); RBC 2.79 10x6/uL (4.00-5.40); RDW 14.2 % (11.5-14.5); WBC 11.3 10x3/uL (4.8-10.8)
[2018-08-21 08:30] VITALS: BP 113/67
[2018-08-21] MEDS ORDERED: SULFAMETHOXAZOL1 TA3 PO (10:21)
[2018-08-21] MEDS ORDERED: PERCOCET 5-3251 TAB PO (10:21)
[2018-08-21] MEDS ORDERED: LEVOFLOXACIN500 MG PO (10:21)
--- NOTE | 2018-08-21 10:54 | MORECARE ---
CASE MANAGEMENT DISCHARGE SUMMARY PATIENT: YRN ECHEVARRIA UNIT: [id number] ADM DATE: 08/17/18 AGE: 43 : 73 SEX: F ROOM/BED: D.2233 AUTHOR: DELFINO,DOC PHYSICIAN: REFERRING PHYSICIAN: APRIL HENDRIX MD DATE OF SERVICE: 08/21/18 Discharge Plan Patient Name: YRN ECHEVARRIA Facility: [facility]:[place] : 1975 Planned Disposition: Home with Home Health Anticipated Discharge Date: 08/21/18 Discharge Date: Expected LOS: 4 Initial Reviewer: [id number] Initial Review Date: 08/21/2018 Generated: 08/21/18 11:54 am Comments DCP- Discharge Planning Updated by [id number]: Linnea Hope on 08/21/18 7:[address] Home wound vac ordered, I spoke with Trevor and faxed clinical. CM will continue to follow and assist with discharge planning/needs. DCPIA - Discharge Planning Initial Assessment Updated by [id number]: Linnea Hope on 08/21/18 10:49 am * Is the patient Alert and Oriented? Yes * How many steps to enter\exit or inside your home? 0/0 * PCP Sees Shauna Joshi under Dr. Lul Taylor at [facility] * Pharmacy [facility] * Preadmission Environment Home with Family * ADLs Partial Dependent * Partial ADLs (Assistance needed) Ambulation * Equipment Cane Nebulizer Other Oxygen Rolling Walker Shower Chair * Other Equipment Portable oxygen * List name and contact numbers for known caregivers / representatives who currently or will assist patient after discharge: Alana Cabrera - [facility] - [phone] * Verbal permission to speak to the caregivers and representatives has been obtained from the patient. Yes * Community resources currently utilized None * Additional services required to return to the preadmission environment? Yes * Can the patient safely return to the preadmission environment? Yes * Has this patient been hospitalized within the prior 30 days at any hospital? Yes External Providers External Provider: [facility] Next Contact Date: Service Request Date: Service Type: Resolution: Reviewer: Comments: External Provider: [facility] Next Contact Date: Service Request Date: Service Type: Resolution: Reviewer: Comments: Coverage Notice Reviewer: [id number] Radha Hope Notice Issued Date-Time: 08/21/2018 10:40 Notice Type: Patient Choice Letter Notice Delivered To: Patient Relationship to Patient: Tank Builder Name: Delivery Method: HAND - Hand Delivered Cher Days: Prior Verbal Notification: Recipient Understood Notice: Yes Recipient Signature: Yes Med Rec Note Co-signed by Attending: Coverage Notice Comment: UYEN FOR PEDRO PABLO HHS AND [facility] WOUND VAC Reviewer: [id number] Radha Hope Notice Issued Date-Time: 08/21/2018 10:40 Notice Type: IM Discharge Notice Notice Delivered To: Patient Relationship to Patient: Self Tank Builder Name: Delivery Method: HAND - Hand Delivered Cher Days: Prior Verbal Notification: Recipient Understood Notice: Yes Recipient Signature: Yes Med Rec Note Co-signed by Attending: Coverage Notice Comment: IMM explained, signed, given, copy placed in MR Patient Name: YRN ECHEVARRIA Page [id number] at 1054 All edits/amendments must be made on the electronic document DICTATION DATE: 08/21/18 1054 SPIKE MACHINE HEATER: NEAL 08/21/18 1054 RPT#: [id number] DC DATE: STATUS: ADM IN [facility] [address] [place] [address] END OF REPORT
--- NOTE | 2018-08-21 11:03 | MORECARE ---
CASE MANAGEMENT DISCHARGE SUMMARY PATIENT: YRN ECHEVARRIA UNIT: [id number] ADM DATE: 08/17/18 AGE: 43 : 73 SEX: F ROOM/BED: D.[facility] AUTHOR: DELFINO,DOC PHYSICIAN: REFERRING PHYSICIAN: APRIL KNOWLES MD DATE OF SERVICE: 08/21/18 Discharge Plan Patient Name: YRN ECHEVARRIA Facility: [facility]:[place] : 1975 Planned Disposition: Home with Home Health Anticipated Discharge Date: 08/21/18 Discharge Date: Expected LOS: 4 Initial Reviewer: [email or web address] Initial Review Date: 08/21/2018 Generated: 08/21/18 12:03 pm Comments DCP- Discharge Planning Updated by [id number]: Linnea Hope on 08/21/18 9:[address] Patient Name: YRN ECHEVARRIA Admission Status: ER Accout number: [id number] Admission Date: 08-17-2018 : 1975 Admission Diagnosis: Attending: APRIL KNOWLES Current LOS: 4 Anticipated DC Date: 08-21-2018 Planned Disposition: Home with Home Health Primary Insurance: MEDICARE A & B Discharge Planning Comments: CM met with patient to discuss discharge planning/needs. She lives with her 19 and 21 year old child. She states she uses a cane to ambulate with at times. States she has a nebulizer, oxygen and portable oxygen and receives her supplies through [facility]. States that her mother will pick her up on discharge. UYEN for [facility] signed and I have spoken to Bev there and clinical faxed. I am waiting on insurance auth for wound vac, then will get her home wound vac. The Rx has been emailed to Dr. Knowles per [facility]. CM will continue to follow and assist with discharge planning/needs. Optometry Teacher: Linnea Hope DCP- Discharge Planning Updated by [id number]: Linnea Hope on 08/21/18 7:[address] Home wound vac ordered, I spoke with Trevor and faxed clinical. CM will continue to follow and assist with discharge planning/needs. DCPIA - Discharge Planning Initial Assessment Updated by [id number]: Linnea Hope on 08/21/18 10:49 am * Is the patient Alert and Oriented? Yes * How many steps to enter\exit or inside your home? 0/0 * PCP Sees Shauna Joshi under Dr. Lul Taylor at [facility] * Pharmacy [facility] [address] * Preadmission Environment Home with Family * ADLs Partial Dependent * Partial ADLs (Assistance needed) Ambulation * Equipment Cane Nebulizer Other Oxygen Rolling Walker Shower Chair * Other Equipment Portable oxygen * List name and contact numbers for known caregivers / representatives who currently or will assist patient after discharge: Alana Cabrera - [facility] - [phone] * Verbal permission to speak to the caregivers and representatives has been obtained from the patient. Yes * Community resources currently utilized None * Additional services required to return to the preadmission environment? Yes * Can the patient safely return to the preadmission environment? Yes * Has this patient been hospitalized within the prior 30 days at any hospital? Yes Coverage Notice Reviewer: [id number] Radha Hope Notice Issued Date-Time: 08/21/2018 10:40 Notice Type: Patient Choice Letter Notice Delivered To: Patient Relationship to Patient: Leather Whitener Name: Delivery Method: HAND - Hand Delivered Cher Days: Prior Verbal Notification: Recipient Understood Notice: Yes Recipient Signature: Yes Med Rec Note Co-signed by Attending: Coverage Notice Comment: UYEN FOR PEDRO PABLO HHS AND [facility] WOUND VAC Reviewer: [id number] Radha Hope Notice Issued Date-Time: 08/21/2018 10:40 Notice Type: IM Discharge Notice Notice Delivered To: Patient Relationship to Patient: Self Leather Whitener Name: Delivery Method: HAND - Hand Delivered Cher Days: Prior Verbal Notification: Recipient Understood Notice: Yes Recipient Signature: Yes Med Rec Note Co-signed by Attending: Coverage Notice Comment: IMM explained, signed, given, copy placed in MR Last DP export: 08/21/18 9:54 am Patient Name: YRN ECHEVARRIA Page [id number] at 1103 All edits/amendments must be made on the electronic document DICTATION DATE: 08/21/18 1103 DOCTOR OF NAPRAPATHY: NEAL 08/21/18 1103 RPT#: [id number] DC DATE: STATUS: ADM IN [facility] [address] [place] [address] END OF REPORT
--- NOTE | 2018-08-21 15:08 | MORECARE ---
CASE MANAGEMENT DISCHARGE SUMMARY PATIENT: YRN ECHEVARRIA UNIT: [id number] ADM DATE: 08/17/18 AGE: 43 : 73 SEX: F ROOM/BED: D.[facility] AUTHOR: DELFINO,DOC PHYSICIAN: REFERRING PHYSICIAN: APRIL KNOWLES MD DATE OF SERVICE: 08/21/18 Discharge Plan Patient Name: YRN ECHEVARRIA Facility: [facility]:[place] : 1975 Planned Disposition: Home with Home Health Anticipated Discharge Date: 08/21/18 Discharge Date: Expected LOS: 4 Initial Reviewer: [email or web address] Initial Review Date: 08/21/2018 Generated: 08/21/18 4:08 pm Comments DCP- Discharge Planning Updated by [email or web address]: Linnea Hope on 08/21/18 9:[address] Patient Name: YRN ECHEVARRIA Admission Status: ER Accout number: [id number] Admission Date: 08-17-2018 : 1975 Admission Diagnosis: Attending: APRIL KNOWLES Current LOS: 4 Anticipated DC Date: 08-21-2018 Planned Disposition: Home with Home Health Primary Insurance: MEDICARE A & B Discharge Planning Comments: CM met with patient to discuss discharge planning/needs. She lives with her 19 and 21 year old child. She states she uses a cane to ambulate with at times. States she has a nebulizer, oxygen and portable oxygen and receives her supplies through [facility]. States that her mother will pick her up on discharge. UYEN for [facility] signed and I have spoken to Bev there and clinical faxed. I am waiting on insurance auth for wound vac, then will get her home wound vac. The Rx has been emailed to Dr. Knowles per [facility]. CM will continue to follow and assist with discharge planning/needs. Coil Former: Linnea Hope DCP- Discharge Planning Updated by [id number]: Linnea Hope on 08/21/18 7:[address] Home wound vac ordered, I spoke with Trevor and faxed clinical. CM will continue to follow and assist with discharge planning/needs. DCPIA - Discharge Planning Initial Assessment Updated by [id number]: Linnea Hope on 08/21/18 10:49 am * Is the patient Alert and Oriented? Yes * How many steps to enter\exit or inside your home? 0/0 * PCP Sees Shauna Joshi under Dr. Lul [facility] at [facility] * Pharmacy [facility] [address] * Preadmission Environment Home with Family * ADLs Partial Dependent * Partial ADLs (Assistance needed) Ambulation * Equipment Cane Nebulizer Other Oxygen Rolling Walker Shower Chair * Other Equipment Portable oxygen * List name and contact numbers for known caregivers / representatives who currently or will assist patient after discharge: Alana Cabrera - formerly [facility] - [phone] * Verbal permission to speak to the caregivers and representatives has been obtained from the patient. Yes * Community resources currently utilized None * Additional services required to return to the preadmission environment? Yes * Can the patient safely return to the preadmission environment? Yes * Has this patient been hospitalized within the prior 30 days at any hospital? Yes External Providers External Provider: [facility] Next Contact Date: Service Request Date: Service Type: Resolution: Reviewer: Comments: Coverage Notice Reviewer: [id number] Radha Hope Notice Issued Date-Time: 08/21/2018 10:40 Notice Type: Patient Choice Letter Notice Delivered To: Patient Relationship to Patient: Interior Painter Name: Delivery Method: HAND - Hand Delivered Cher Days: Prior Verbal Notification: Recipient Understood Notice: Yes Recipient Signature: Yes Med Rec Note Co-signed by Attending: Coverage Notice Comment: UYEN FOR PEDRO PABLO HHS AND [facility] WOUND VAC Reviewer: [id number] Radha Hope Notice Issued Date-Time: 08/21/2018 10:40 Notice Type: IM Discharge Notice Notice Delivered To: Patient Relationship to Patient: Self Interior Painter Name: Delivery Method: HAND - Hand Delivered Cher Days: Prior Verbal Notification: Recipient Understood Notice: Yes Recipient Signature: Yes Med Rec Note Co-signed by Attending: Coverage Notice Comment: IMM explained, signed, given, copy placed in MR Last DP export: 08/21/18 10:03 am Patient Name: YRN ECHEVARRIA Page 10485 at 1508 All edits/amendments must be made on the electronic document DICTATION DATE: 08/21/18 1509 PETROPHYSICIST: DM 08/21/18 1508 RPT#: [id number] DC DATE: STATUS: ADM IN [facility] [address] [place] [address] END OF REPORT
--- NOTE | 2018-08-21 15:28 | MORECARE ---
CASE MANAGEMENT DISCHARGE SUMMARY PATIENT: YRN ECHEVARRIA UNIT: [id number] ADM DATE: 08/17/18 AGE: 43 : [birth year] SEX: F ROOM/BED: D.2233 AUTHOR: DELFINO,DOC PHYSICIAN: REFERRING PHYSICIAN: APRIL KNOWLES MD DATE OF SERVICE: 08/21/18 Discharge Plan Patient Name: YRN ECHEVARRIA Facility: [facility]:[place] : 1975 Planned Disposition: Home with Home Health Anticipated Discharge Date: 08/21/18 Discharge Date: Expected LOS: 4 Initial Reviewer: [email or web address] Initial Review Date: 08/21/2018 Generated: 08/21/18 4:28 pm Comments DCP- Discharge Planning Updated by [email or web address]: Linnea Hope on 08/21/18 2:[address] Received a call from [facility] that they are unable to provide services. I called [facility] and spoke with Shruthi and clinical faxed. I faxed Nba the proof of delivery sheet signed by the patient and spoke to [facility] in [place] for the home wound vac. CM will continue to follow and assist with discharge planning/needs. DCP- Discharge Planning Updated by [id number]: Linnea Hope on 08/21/18 9:[address] Patient Name: YRN ECHEVARRIA Admission Status: ER Accout number: [id number] Admission Date: 08-17-2018 : 1975 Admission Diagnosis: Attending: APRIL KNOWLES Current LOS: 4 Anticipated DC Date: 08-21-2018 Planned Disposition: Home with Home Health Primary Insurance: MEDICARE A & B Discharge Planning Comments: CM met with patient to discuss discharge planning/needs. She lives with her 19 and 21 year old child. She states she uses a cane to ambulate with at times. States she has a nebulizer, oxygen and portable oxygen and receives her supplies through [facility]. States that her mother will pick her up on discharge. UYEN for [facility] signed and I have spoken to Bev there and clinical faxed. I am waiting on insurance auth for wound vac, then will get her home wound vac. The Rx has been emailed to Dr. Knowles per [facility]. CM will continue to follow and assist with discharge planning/needs. Diamond Powder Mixer: Linnea Hope DCP- Discharge Planning Updated by [email or web address]: Linnea Hope on 08/21/18 7:[address] Home wound vac ordered, I spoke with Trevor and faxed clinical. CM will continue to follow and assist with discharge planning/needs. DCPIA - Discharge Planning Initial Assessment Updated by [id number]: Linnea Hope on 08/21/18 10:49 am * Is the patient Alert and Oriented? Yes * How many steps to enter\exit or inside your home? 0/0 * PCP Sees Shauna Joshi under Dr. Lul Taylor at [facility] * [facility] [address] * Preadmission Environment Home with Family * ADLs Partial Dependent * Partial ADLs (Assistance needed) Ambulation * Equipment Cane Nebulizer Other Oxygen Rolling Walker Shower Chair * Other Equipment Portable oxygen * List name and contact numbers for known caregivers / representatives who currently or will assist patient after discharge: Alana Cabrera [facility] [phone] * Verbal permission to speak to the caregivers and representatives has been obtained from the patient. Yes * Community resources currently utilized None * Additional services required to return to the preadmission environment? Yes * Can the patient safely return to the preadmission environment? Yes * Has this patient been hospitalized within the prior 30 days at any hospital? Yes Coverage Notice Reviewer: [id number] Radha Hope Notice Issued Date-Time: 08/21/2018 10:40 Notice Type: Patient Choice Letter Notice Delivered To: Patient Relationship to Patient: Tax Services Manager Name: Delivery Method: HAND - Hand Delivered Cher Days: Prior Verbal Notification: Recipient Understood Notice: Yes Recipient Signature: Yes Med Rec Note Co-signed by Attending: Coverage Notice Comment: UYEN FOR PEDRO PABLO HHS AND [facility] WOUND VAC Reviewer: [id number] Radha Hope Notice Issued Date-Time: 08/21/2018 10:40 Notice Type: IM Discharge Notice Notice Delivered To: Patient Relationship to Patient: Self Tax Services Manager Name: Delivery Method: HAND - Hand Delivered Cher Days: Prior Verbal Notification: Recipient Understood Notice: Yes Recipient Signature: Yes Med Rec Note Co-signed by Attending: Coverage Notice Comment: IMM explained, signed, given, copy placed in MR Last DP export: 08/21/18 2:08 pm Patient Name: YRN ECHEVARRIA Page 66412 at 1528 All edits/amendments must be made on the electronic document DICTATION DATE: 08/21/181527 BUNCHER MACHINE: NEAL 08/21/181527 RPT#: [id number] DC DATE: STATUS: ADM IN [facility] [address] [place] [address] END OF REPORT
--- NOTE | 2018-08-21 16:08 | NUR ---
PT RESTING QUIETLY, RESP EVEN AND LABORED,
--- NOTE | 2018-08-21 16:24 | NUR ---
I have reviewed this patient and I concur with the Shift Assessment completed by the Licensed Practical Nurse today this shift.
--- NOTE | 2018-08-21 16:45 | MORECARE ---
CASE MANAGEMENT DISCHARGE SUMMARY PATIENT: YRN ECHEVARRIA UNIT: [id number] ADM DATE: 08/17/18 AGE: 43 : 73 SEX: F ROOM/BED: D.2233 AUTHOR: DELFINO,DOC PHYSICIAN: REFERRING PHYSICIAN: APRIL HENDRIX MD DATE OF SERVICE: 08/21/18 Discharge Plan Patient Name: YRN ECHEVARRIA Facility: [facility]:[place] : 1975 Planned Disposition: Home with Home Health Anticipated Discharge Date: 08/21/18 Discharge Date: Expected LOS: 4 Initial Reviewer: [id number] Initial Review Date: 08/21/2018 Generated: 08/21/18 5:45 pm Comments DCP- Discharge Planning Updated by [email or web address]: Johanna Naidu on 08/21/18 3:[address]POKE WITH PATIENT DR HENDRIX AND CARE , PATIENT HAS AN OPEN CAR INSURANCE CLAIM. HOME HEALTH WILL NOT CORRECTIONAL SERGEANT TILL THAT IS CLOSED. I CALLED [facility] AND SPOKE WITH SAYDA RECINOS HE STATED THAT HE WOULD CALL THE PROOF COINS INSPECTOR AND TRY TO HELP GET IT CLOSED. THIS IS FROM A JUNE 2017 CLAIM. PATIENT WILL NOT BE DISCHARGING TODAY. DR HENDRIX IS AWARE SO IS PATIENT GALAVIZ'S NUMBER IS [phone] DCP- Discharge Planning Updated by [id number]: Linnea Hope on 08/21/18 2:[address] Received a call from [facility] that they are unable to provide services. I called [facility] and spoke with Shruthi and clinical faxed. I faxed [place] the proof of delivery sheet signed by the patient and spoke to Pat in [place] for the home wound vac. CM will continue to follow and assist with discharge planning/needs. DCP- Discharge Planning Updated by [id number]: iLnnea Hope on 08/21/18 9:[address] Patient Name: YRN ECHEVARRIA Admission Status: ER Accout number: [id number] Admission Date: 08-17-2018 : 1975 Admission Diagnosis: Attending: APRIL HENDRIX Current LOS: 4 Anticipated DC Date: 08-21-2018 Planned Disposition: Home with Home Health Primary Insurance: MEDICARE A & B Discharge Planning Comments: CM met with patient to discuss discharge planning/needs. She lives with her 19 and 21 year old child. She states she uses a cane to ambulate with at times. States she has a nebulizer, oxygen and portable oxygen and receives her supplies through [facility]. States that her mother will pick her up on discharge. UYEN for [facility] signed and I have spoken to Bev there and clinical faxed. I am waiting on insurance auth for wound vac, then will get her home wound vac. The Rx has been emailed to Dr. Hendrix per [facility]. CM will continue to follow and assist with discharge planning/needs. Hearings Reporter: Linnea Hope DCP- Discharge Planning Updated by [email or web address]: Linnea Hope on 08/21/18 7:[address] Home wound vac ordered, I spoke with Trevor and faxed clinical. CM will continue to follow and assist with discharge planning/needs. DCPIA - Discharge Planning Initial Assessment Updated by [email or web address]: Linnea Hope on 08/21/18 10:49 am * Is the patient Alert and Oriented? Yes * How many steps to enter\exit or inside your home? 0/0 * PCP Sees Shauna Joshi under Dr. Lul Taylor at [facility] * Pharmacy [facility] * Preadmission Environment Home with Family * ADLs Partial Dependent * Partial ADLs (Assistance needed) Ambulation * Equipment Cane Nebulizer Other Oxygen Rolling Walker Shower Chair * Other Equipment Portable oxygen * List name and contact numbers for known caregivers / representatives who currently or will assist patient after discharge: Alana Cabrera - mother - [phone] * Verbal permission to speak to the caregivers and representatives has been obtained from the patient. Yes * Community resources currently utilized None * Additional services required to return to the preadmission environment? Yes * Can the patient safely return to the preadmission environment? Yes * Has this patient been hospitalized within the prior 30 days at any hospital? Yes Coverage Notice Reviewer: [id number] - Linnea Hope Notice Issued Date-Time: 08/21/2018 10:40 Notice Type: Patient Choice Letter Notice Delivered To: Patient Relationship to Patient: Cleaner And Polisher Name: Delivery Method: HAND - Hand Delivered Cher Days: Prior Verbal Notification: Recipient Understood Notice: Yes Recipient Signature: Yes Med Rec Note Co-signed by Attending: Coverage Notice Comment: UYEN FOR PEDRO PABLO HHS AND [facility] WOUND VAC Reviewer: [id number] Radha Hope Notice Issued Date-Time: 08/21/2018 10:40 Notice Type: IM Discharge Notice Notice Delivered To: Patient Relationship to Patient: Self Cleaner And Polisher Name: Delivery Method: HAND - Hand Delivered Cher Days: Prior Verbal Notification: Recipient Understood Notice: Yes Recipient Signature: Yes Med Rec Note Co-signed by Attending: Coverage Notice Comment: IMM explained, signed, given, copy placed in MR Last DP export: 08/21/18 2:28 pm Patient Name: YRN ECHEVARRIA Page 19786 at 1645 All edits/amendments must be made on the electronic document DICTATION DATE: 08/21/181643 AUDIO EXPERIENCE EXPERT: NEAL 08/21/181643 RPT#: [id number] DC DATE: STATUS: ADM IN [facility] [address] [place] [address] END OF REPORT
[2018-08-21 21:37] VITALS: BP 122/69
[2018-08-22 01:18] VITALS: BP 138/78
--- NOTE | 2018-08-22 03:54 | NUR ---
I have reviewed this patient and I concur with the Shift Assessment completed by the Licensed Practical Nurse today this shift.
[2018-08-22 06:11] VITALS: BP 120/72
--- NOTE | 2018-08-22 07:53 | NUR ---
PT STANDING UP ON ROOM AT BEDSIDE, STATES SHE IS IN PAIN THIS MORNING. PT HAS ULCERS IN HER MOUTH, DOWN CENTER OF TONGUE AND AROUND BOTTOM LIP. SHE STATED SHE HAS NOT HAD THEM BEFORE AND JUST NOTICED IT. ADVISED I WILL LET PHYSICIANS KNOW. NO OTHER NEEDS VOICED, WILL ADMINISTER PRN PAIN MEDS WITH MORNING MEDS
--- NOTE | 2018-08-22 08:17 | NUR ---
PT NOW STATES SORES HAVE BEEN IN HER MOUTH FOR SEVERAL DAYS AND HAS ONLY GOTTEN WORSE. HAPPENED WHEN SHE SPIKED A FEVER AND BECAME DEHYDRATED. NO NEEDS VOICED, CONTINUE WITH PLAN OF CARE
[2018-08-22 08:46] VITALS: BP 128/76
--- NOTE | 2018-08-22 10:14 | NUR ---
PT REQUESTED TO GET IN SHOWER STATED THAT ADVISED HER SHE COULD AND WOUND VAC WAS WATERPROOF AND ALL ELSE CAN BE WRAPPED UP. DID NOT SEE IN NOTES WHERE PT CAN GET IN SHOWER, WILL SEE IF SHE WILL WAIT UNTIL I GET CLARIFICATION
--- NOTE | 2018-08-22 10:44 | NUR ---
PT INSISTENT ON CHOER, WRAPPED UP PT IV AND JEF DRAINS PT TO HAVE WOUND VAC CHANGED TODAY BEFORE DC ANYWAYS, CASE MGMT SPOKE TO PT IN REG TO DC
--- NOTE | 2018-08-22 11:21 | MORECARE ---
CASE MANAGEMENT DISCHARGE SUMMARY PATIENT: YRN ECHEVARRIA UNIT: [id number] ADM DATE: 08/17/18 AGE: 43 : 73 SEX: F ROOM/BED: D.2233 AUTHOR: DELFINO,DOC PHYSICIAN: REFERRING PHYSICIAN: APRIL HENDRIX MD DATE OF SERVICE: 08/22/18 Discharge Plan Patient Name: YRN ECHEVARRIA Facility: [facility]:[place] : 1975 Planned Disposition: Home with Home Health Anticipated Discharge Date: 08/21/18 Discharge Date: Expected LOS: 4 Initial Reviewer: [id number] Initial Review Date: 08/21/2018 Generated: 08/22/18 12:20 pm Comments DCP- Discharge Planning Updated by [id number]: Linnea Hope on 08/22/18 10:[address] CM spoke with Huma Martinez an fire claims adjuster at [facility] [employer]. She is going to fax a letter that states the claim has been closed. Huma's contact number is [phone]. I spoke with Sean at [facility], he states that the patient may be discharged and they will see her on Monday. I spoke with Dr. Hendrix and he states ok to discharge today. Clinical faxed to [facility]. I called Dilia with wound care and notified of need for dressing changed prior to discharge. CM will continue to follow and assist with discharge planning/needs. DCP- Discharge Planning Updated by [id number]: Johanna Naidu on 08/21/18 3:[address] SPOKE WITH PATIENT DR HENDRIX AND [facility], PATIENT HAS AN OPEN CAR INSURANCE CLAIM. HOME HEALTH WILL NOT SAP DATA ANALYST TILL THAT IS CLOSED. I CALLED [facility] IN [facility] AND SPOKE WITH SAYDA RECINOS HE STATED THAT HE WOULD CALL THE OLIVE BRINE TESTER AND TRY TO HELP GET IT CLOSED. THIS IS FROM A JUNE 2017 CLAIM. PATIENT WILL NOT BE DISCHARGING TODAY. DR HENDRIX IS AWARE SO IS PATIENT [employer] NUMBER IS [phone] DCP- Discharge Planning Updated by [id number]: Linnea Hope on 08/21/18 2:[address] Received a call from [facility] that they are unable to provide services. I called [facility] and spoke with Shruthi and clinical faxed. I faxed [place] the proof of delivery sheet signed by the patient and spoke to Pat in [employer] for the home wound vac. CM will continue to follow and assist with discharge planning/needs. DCP- Discharge Planning Updated by [id number]: Linnea Hope on 08/21/18 9:[address] Patient Name: YRN ECHEVARRIA Admission Status: ER Accout number: [id number] Admission Date: 08-17-2018 : 1975 Admission Diagnosis: Attending: APRIL HENDRIX Current LOS: 4 Anticipated DC Date: 08-21-2018 Planned Disposition: Home with Home Health Primary Insurance: MEDICARE A & B Discharge Planning Comments: CM met with patient to discuss discharge planning/needs. She lives with her 19 and 21 year old child. She states she uses a cane to ambulate with at times. States she has a nebulizer, oxygen and portable oxygen and receives her supplies through [facility]. States that her mother will pick her up on discharge. UYEN for [facility] signed and I have spoken to Bev there and clinical faxed. I am waiting on insurance auth for wound vac, then will get her home wound vac. The Rx has been emailed to Dr. Hendrix per [facility]. CM will continue to follow and assist with discharge planning/needs. Medical Physics Researcher: Linnea Hope DCP- Discharge Planning Updated by [id number]: Linnea Hope on 08/21/18 7:[address] Home wound vac ordered, I spoke with Trevor and faxed clinical. CM will continue to follow and assist with discharge planning/needs. DCPIA - Discharge Planning Initial Assessment Updated by [id number]: Linnea Rajanniyah on 08/21/18 10:49 am * Is the patient Alert and Oriented? Yes * How many steps to enter\exit or inside your home? 0/0 * PCP Sees Shauna Joshi under Dr. Lul Taylor at [facility] * Pharmacy [facility] [address] * Preadmission Environment Home with Family * ADLs Partial Dependent * Partial ADLs (Assistance needed) Ambulation * Equipment Cane Nebulizer Other Oxygen Rolling Walker Shower Chair * Other Equipment Portable oxygen * List name and contact numbers for known caregivers / representatives who currently or will assist patient after discharge: Alana Cabrera - [facility] - [phone] * Verbal permission to speak to the caregivers and representatives has been obtained from the patient. Yes * Community resources currently utilized None * Additional services required to return to the preadmission environment? Yes * Can the patient safely return to the preadmission environment? Yes * Has this patient been hospitalized within the prior 30 days at any hospital? Yes Coverage Notice Reviewer: [id number] Radha Hope Notice Issued Date-Time: 08/21/2018 10:40 Notice Type: Patient Choice Letter Notice Delivered To: Patient Relationship to Patient: Gymnastics Instructor Name: Delivery Method: HAND - Hand Delivered Cher Days: Prior Verbal Notification: Recipient Understood Notice: Yes Recipient Signature: Yes Med Rec Note Co-signed by Attending: Coverage Notice Comment: U[facility]EN FOR [facility] AND [facility] WOUND VAC Reviewer: [id number] Radha Hope Notice Issued Date-Time: 08/21/2018 10:40 Notice Type: IM Discharge Notice Notice Delivered To: Patient Relationship to Patient: Self Gymnastics Instructor Name: Delivery Method: HAND - Hand Delivered Cher Days: Prior Verbal Notification: Recipient Understood Notice: Yes Recipient Signature: Yes Med Rec Note Co-signed by Attending: Coverage Notice Comment: IMM explained, signed, given, copy placed in MR Last DP export: 08/21/18 3:45 pm Patient Name: YRN ECHEVARRIA Page 48425 at 1121 All edits/amendments must be made on the electronic document DICTATION DATE: 08/22/18 112 RADIOLOGY TECH: NEAL 08/22/18 1120 RPT#: [id number] DC DATE: STATUS: ADM IN [facility] [address] [place] [address] END OF REPORT
[2018-08-22 12:26] VITALS: BP 142/74
--- NOTE | 2018-08-22 12:55 | NUR ---
PULLED JEF DRAINS, PT STATED WORSE PAIN EVER AND DID NOT REALIZE SO DEEP. ADMINISTERED PRN MEDS AN HOUR AGO TOO EARLY FOR MORE. GAVE OT ICE PACK TO ASSIST WITH PAIN. PT STATED SHE FORGOT TO ASK DR HENDRIX ABOUT SORES IN HER MOUTH, PER SVETLANA GRAHAM WAS PAGED FOR SOMEONE ALREADY WILL WAIT FOR CALL BACK TO ANSWER. NO OTHER NEEDS VOICED, CONTINUE WITH PLAN OF CARE
--- NOTE | 2018-08-22 13:28 | NUR ---
WOUND VAC DRESSING CHANGE PLUS ATTACHMENT TO HOME VAC. WOUND MEASURES 4CM X 2CM X 6CM (IMPROVED) WOUND BED IS RED AND HAS NO ODOR. SMALL AMOUNT OF BLOODY DRAINAGE NOTED. -125MMHG MODERATE CONTINUOUS PT TOLERATED WELL INSTRUCTIONS ON HOME VAC USE: -BATTERY LIFE, HOW TO CHARGE IT, HOW TO CHANGE CANISTERS, AND DRESSING CHANGES CONTINUE TO BE 3 X PER WEEK PT VOICED UNDERSTANDING.
--- NOTE | 2018-08-22 14:41 | NUR ---
I have reviewed this patient and I concur with the Shift Assessment completed by the Licensed Practical Nurse today this shift.
[2018-08-22] MEDS ORDERED: Nystatin Oral Susp [ PO (15:06)
--- NOTE | 2018-08-22 15:30 | NUR ---
left cvl after sutures removed. pressure held x 5 min. biopatch and occlusive dressing applied. instructed to lie flat x 15 min prior to being discharged. call light in reach
--- NOTE | 2018-08-22 15:31 | NUR ---
PT CENTRAL LINE PULLED BY [facility] SHERIFF. PT INSTRUCTED TO LAY FLAT FOR 15 MINS BEFORE DC. NO OTHER NEEDS VOICED CONTINUE WITH PLAN OF CARE
[2018-08-23 13:12] LABS: AEROBE ID Final report (())
--- NOTE | 2018-08-24 12:40 | MORECARE ---
CASE MANAGEMENT DISCHARGE SUMMARY PATIENT: YRN ECHEVARRIA UNIT: [id number] ADM DATE: 08/17/18 AGE: 43 : [birth year] SEX: F ROOM/BED: D.2233 AUTHOR: DELFINO,DOC PHYSICIAN: REFERRING PHYSICIAN: APRIL HENDRIX MD DATE OF SERVICE: 08/24/18 Discharge Plan Patient Name: YRN ECHEVARRIA Facility: [facility]:[place] : 1975 Planned Disposition: Home with Home Health Anticipated Discharge Date: 08/21/18 Discharge Date: 08/22/2018 Expected LOS: 4 Initial Reviewer: [id number] Initial Review Date: 08/21/2018 Generated: 08/24/18 1:40 pm Comments DCP- Discharge Planning Updated by [id number]: Linnea Hope on 08/22/18 10:[address] CM spoke with Huma Martinez an trim machine adjuster at [employer]. She is going to fax a letter that states the claim has been closed. Huma's contact number is [phone]. I spoke with Sean at [facility], he states that the patient may be discharged and they will see her on Monday. I spoke with Dr. Hendrix and he states ok to discharge today. Clinical faxed to [facility]. I called Dilia with wound care and notified of need for dressing changed prior to discharge. CM will continue to follow and assist with discharge planning/needs. DCP- Discharge Planning Updated by [id number]: Johanna Naidu on 08/21/18 3:[address] SPOKE WITH PATIENT DR HENDRIX AND [facility], PATIENT HAS AN OPEN CAR INSURANCE CLAIM. HOME HEALTH WILL NOT CONSTRUCTION MANAGEMENT INSTRUCTOR TILL THAT IS CLOSED. I CALLED [facility] IN [facility] AND SPOKE WITH SAYDA RECINOS HE STATED THAT HE WOULD CALL THE CONTACT CENTER ASSISTANT AND TRY TO HELP GET IT CLOSED. THIS IS FROM A JUNE 2017 CLAIM. PATIENT WILL NOT BE DISCHARGING TODAY. DR HENDRIX IS AWARE SO IS PATIENT GUILL[employer] NUMBER IS [phone] DCP- Discharge Planning Updated by [email or web address]: Linnea Hope on 08/21/18 2:[address] Received a call from [facility] that they are unable to provide services. I called [facility] and spoke with Shruthi and clinical faxed. I faxed [facility] the proof of delivery sheet signed by the patient and spoke to Pat in [employer] for the home wound vac. CM will continue to follow and assist with discharge planning/needs. DCP- Discharge Planning Updated by [id number]: Linnea Hope on 08/21/18 9:[address] Patient Name: YRN ECHEVARRIA Admission Status: ER Accout number: [id number] Admission Date: 08-17-2018 : 1975 Admission Diagnosis: Attending: APRIL HENDRIX Current LOS: 4 Anticipated DC Date: 08-21-2018 Planned Disposition: Home with Home Health Primary Insurance: MEDICARE A & B Discharge Planning Comments: CM met with patient to discuss discharge planning/needs. She lives with her 19 and 21 year old child. She states she uses a cane to ambulate with at times. States she has a nebulizer, oxygen and portable oxygen and receives her supplies through [facility]. States that her mother will pick her up on discharge. UYEN for [facility] signed and I have spoken to Bev there and clinical faxed. I am waiting on insurance auth for wound vac, then will get her home wound vac. The Rx has been emailed to Dr. Hendrix per [facility]. CM will continue to follow and assist with discharge planning/needs. President Ergonomic Consulting: Linnea Hope DCP- Discharge Planning Updated by [id number]: Linnea Hope on 08/21/18 7:[address] Home wound vac ordered, I spoke with Trevor and faxed clinical. CM will continue to follow and assist with discharge planning/needs. DCPIA - Discharge Planning Initial Assessment Updated by [email or web address]: Linnea Rajanniyah on 08/21/18 10:49 am * Is the patient Alert and Oriented? Yes * How many steps to enter\exit or inside your home? 0/0 * PCP Sees Shauna Joshi under Dr. Lul Taylor at [facility] * [facility] [address] * Preadmission Environment Home with Family * ADLs Partial Dependent * Partial ADLs (Assistance needed) Ambulation * Equipment Cane Nebulizer Other Oxygen Rolling Walker Shower Chair * Other Equipment Portable oxygen * List name and contact numbers for known caregivers / representatives who currently or will assist patient after discharge: Alana Cabrera - [facility] - [phone] * Verbal permission to speak to the caregivers and representatives has been obtained from the patient. Yes * Community resources currently utilized None * Additional services required to return to the preadmission environment? Yes * Can the patient safely return to the preadmission environment? Yes * Has this patient been hospitalized within the prior 30 days at any hospital? Yes Coverage Notice Reviewer: [id number] Hope Notice Issued Date-Time: 08/21/2018 10:40 Notice Type: Patient Choice Letter Notice Delivered To: Patient Relationship to Patient: Audio Visual Aide Name: Delivery Method: HAND - Hand Delivered Cher Days: Prior Verbal Notification: Recipient Understood Notice: Yes Recipient Signature: Yes Med Rec Note Co-signed by Attending: Coverage Notice Comment: UYEN FOR [facility] AND [facility] WOUND VAC Reviewer: [id number] Radha Hope Notice Issued Date-Time: 08/21/2018 10:40 Notice Type: IM Discharge Notice Notice Delivered To: Patient Relationship to Patient: Self Audio Visual Aide Name: Delivery Method: HAND - Hand Delivered Cher Days: Prior Verbal Notification: Recipient Understood Notice: Yes Recipient Signature: Yes Med Rec Note Co-signed by Attending: Coverage Notice Comment: IMM explained, signed, given, copy placed in MR Last DP export: 08/22/18 10:21 am Patient Name: YRN ECHEVARRIA Page [id number] at 1240 All edits/amendments must be made on the electronic document DICTATION DATE: 08/24/18 1239 TECHNICAL SERVICE ENGINEER: NEAL 08/24/18 1239 RPT#: [id number] DC DATE:08/22/18 STATUS: DIS IN [facility] [address] [place] [address] END OF REPORT
== END 2018-08-22 16:55 | disposition home health service (06) | DRG 907 ==
LOC: D.ER 10:40 → D.EDHOLD 14:44 → D.MS 14:44 → D.ICU 19:34 → D.MS 08-18 14:14
PROVIDERS: Family Medicine; ADMIT Surgery; ATTEND Surgery
PROC: 0DT80ZZ Resection of Small Intestine, Open Approach (ICD-10-PCS; principal; 2018-08-17 15:00)
PROC: 0WPF0JZ Removal of Synthetic Substitute from Abdominal Wall, Open Approach (ICD-10-PCS; 2018-08-17 15:00)
PROC: 05H633Z Insertion of Infusion Device into Left Subclavian Vein, Percutaneous Approach (ICD-10-PCS; 2018-08-17 15:00)
DX: T85.79XA Infection and inflammatory reaction due to other internal prosthetic devices, implants and grafts, initial encounter (principal); K65.1 Peritoneal abscess; T81.43XA Infection following a procedure, organ and space surgical site, initial encounter; J44.9 Chronic obstructive pulmonary disease, unspecified; E11.9 Type 2 diabetes mellitus without complications; K21.9 Gastro-esophageal reflux disease without esophagitis

== ENCOUNTER 2018-08-23 13:37 | Inpatient (IN) | payer MEDICARE ==
[~2018-08-23] VITALS: Ht 167.6 cm; Wt 82.6 kg
[~2018-08-23 13:37] MED LIST changes: +LEVOFLOXACIN500 MG PO; +Nystatin Oral Susp [ PO; +PERCOCET 5-3251 TAB PO; +SULFAMETHOXAZOL1 TA3 PO
[2018-08-23 14:37] LABS: BASOPHILS 0.3 % (0-2); EOSINOPHILS 1.5 % (0-7); HEMATOCRIT 27.7 % (36.0-48.0); HEMOGLOBIN 9.2 g/dL (12-16); IMMATURE GRANULOCYTES 1.6 % (0-5); LYMPHOCYTES 21.4 % (15-50); MCH 29.5 pg (26.0-34.0); MCHC 33.2 g/dL (31.0-37.0); MCV 88.8 fL (80.0-100.0); MEAN PLATELET VOLUME 9.9 fL (7.4-10.4); MONOCYTES 6.6 % (2-11); NEUTROPHILS 68.6 % (40-80); PLATELET COUNT 441 10x3/uL (130-400); RBC 3.12 10x6/uL (4.00-5.40); RDW 13.6 % (11.5-14.5)
[2018-08-23 14:50] LABS: APPEARANCE CLEAR (CLEAR); BILIRUBIN NEGATIVE (NEGATIVE); COLOR YELLOW (YELLOW); GLUCOSE NEGATIVE (NEGATIVE); KETONE MODERATE mg/dL (NEGATIVE); NITRITE NEGATIVE (NEGATIVE); PROTEIN NEGATIVE (NEGATIVE); UROBILINOGEN NORMAL (NORMAL)
[2018-08-23 14:52] LABS: ALBUMIN 1.9 g/dL (3.4-5.0); ALKALINE PHOSPHATASE 120 U/L (46-116); ALT (SGPT) 16 U/L (10-68); AMYLASE - SERUM 29 U/L (25-115); BILIRUBIN - TOTAL 0.52 mg/dL (0.2-1.3); CALC OSMOLALITY 271 mosm/kg (275-300); CALCIUM 8.2 mg/dL (8.5-10.1); CARBON DIOXIDE 31.8 mmol/L (21.0-32.0); CHLORIDE - SERUM 101 mmol/L (98-107); CREATININE - SERUM 0.7 mg/dL (0.6-1.3); GLUCOSE 94 mg/dL (74-106); LIPASE 113 U/L (73-393); POTASSIUM - SERUM 3.2 mmol/L (3.5-5.1); PROTEIN - SERUM 6.5 g/dL (6.4-8.2); SODIUM 137 mmol/L (136-145); UREA NITROGEN 6 mg/dL (7-18); eGFR NON AFRICAN AMERICAN > 90 mL/min (90-120)
[2018-08-23 15:15] LABS: CKMB 0.1 U/L (0.0-3.6); CREATINE KINASE 28 UL (21-215); PRO BNP 1598 pg/mL (0-125)
--- NOTE | 2018-08-23 15:42 | NUR ---
BLANKETS PROVIDED REQUESTED AND LIGHTS DIMMED FOR COMFORT. CALL LIGHT IN REACH, WILL CONTINUE TO MONITOR.
--- NOTE | 2018-08-23 16:50 | NUR ---
PT OUT OF THE DEPT FOR ORDERED CT SCAN.
--- NOTE | 2018-08-23 17:19 | NUR ---
PT RETURNED TO THE ED AT THIS TIME, PER CT STAFF, PT'S IV INFILTRATED DURING CT. CT STAFF UNABLE TO START ANOTHER IV D/T PT BEING "A DIFFICULT STICK." CT STAFF STATES THAT EDP WAS NOTIFIED AND ORDERED CT COMPLETED W/O CONTRAST.
--- NOTE | 2018-08-23 19:03 | NUR ---
HAND-OFF REPORT GIVEN TO CHRISTOPHER Mejias RN
--- NOTE | 2018-08-23 19:27 | MORECARE ---
CASE MANAGEMENT DISCHARGE SUMMARY PATIENT: YRN ECHEVARRIA UNIT: [id number] ADM DATE: 08/23/18 AGE: 43 : [birth year] SEX: F ROOM/BED: D.E11 AUTHOR: LAN SALEH PHYSICIAN: REFERRING PHYSICIAN: JOSE CARDENAS MD DATE OF SERVICE: 08/23/18 Discharge Plan Patient Name: YRN ECHEVARRIA Facility: [facility]:[place] : 1975 Planned Disposition: Anticipated Discharge Date: Discharge Date: Expected LOS: Initial Reviewer: [email or web address] Initial Review Date: 08/23/2018 Generated: 08/23/18 8:27 pm Patient Name: YRN ECHEVARRIA Page [id number] at 1926 All edits/amendments must be made on the electronic document DICTATION DATE: 08/23/181926 INDUSTRIAL CLEANING TECHNICIAN: NEAL 08/23/181926 RPT#: [id number] DC DATE: STATUS: ADM IN [facility] [address] [place] [address] END OF REPORT
[2018-08-23 19:32] VITALS: BP 138/66
--- NOTE | 2018-08-23 20:13 | NUR ---
PT ARRIVED BY BED WITH FAMILY AND HOSPITAL STAFF. ASSISTED PT BY WALKER TO AND FROM BATHROOM. DENIES NEEDS AT THIS TIME. PT BACK IN BED. BED IN LOW. SIDE RAILS X2 CALL LIGHT IN REACH. TM
[2018-08-23 20:32] VITALS: BP 131/68
[2018-08-23 20:56] VITALS: BMI 29.4
--- NOTE | 2018-08-24 03:21 | NUR ---
PT RESTING QUIETLY. CALL LIGHT IN REACH. BIPAP ON ONLY USED AT NIGHT. BED IN LOW. SIDE RAILS X2. NO SIGNS OF DISTRESS OR PAIN. WCTM
[2018-08-24 04:00] VITALS: BP 122/63
--- NOTE | 2018-08-24 07:00 | NUR ---
PATIENT RECIEVED FROM PREVIOUS SHIFT RESTING IN BED. ADMITTED FRO WEAKNESS EDEMA, ATELECTASIS. PATIENT WAS DISCHARGED FROM THIS FACILITY 2 DAYS AGO FOLLOWING HERNIA REPAIR AND BOWEL RESECTION. MIDLINE INCISION NOTED WITH STAPELS INTACT, WOUND VAC DRESSING INTACT TO CENTER OF INCISION. PATIENT DENIES SHORTNESS OF BREATH, WEARS BI-PAP AT NIGHT. NO NEEDS VOICED AT THIS TIME. CL IN REACH
[2018-08-24 08:24] LABS: BASOPHILS 0.4 % (0-2); EOSINOPHILS 1.8 % (0-7); HEMATOCRIT 27.6 % (36.0-48.0); HEMOGLOBIN 9.2 g/dL (12-16); IMMATURE GRANULOCYTES 1.5 % (0-5); LYMPHOCYTES 28.7 % (15-50); MCH 29.8 pg (26.0-34.0); MCHC 33.3 g/dL (31.0-37.0); MCV 89.3 fL (80.0-100.0); MEAN PLATELET VOLUME 9.8 fL (7.4-10.4); MONOCYTES 6.4 % (2-11); NEUTROPHILS 61.2 % (40-80); PLATELET COUNT 456 10x3/uL (130-400); RBC 3.09 10x6/uL (4.00-5.40); RDW 13.7 % (11.5-14.5); WBC 10.9 10x3/uL (4.8-10.8)
[2018-08-24 08:34] LABS: ALBUMIN 1.9 g/dL (3.4-5.0); ALKALINE PHOSPHATASE 111 U/L (46-116); ALT (SGPT) 15 U/L (10-68); BILIRUBIN - TOTAL 0.45 mg/dL (0.2-1.3); CALC OSMOLALITY 278 mosm/kg (275-300); CALCIUM 8.3 mg/dL (8.5-10.1); CARBON DIOXIDE 31.9 mmol/L (21.0-32.0); CHLORIDE - SERUM 103 mmol/L (98-107); CREATININE - SERUM 0.7 mg/dL (0.6-1.3); GLUCOSE 105 mg/dL (74-106); PROTEIN - SERUM 6.4 g/dL (6.4-8.2); SODIUM 141 mmol/L (136-145); UREA NITROGEN 6 mg/dL (7-18); eGFR NON AFRICAN AMERICAN > 90 mL/min (90-120)
[2018-08-24 08:35] LABS: POTASSIUM - SERUM 3.7 mmol/L (3.5-5.1)
[2018-08-24 08:59] VITALS: BP 116/65
[2018-08-24 10:57] VITALS: BMI 29.3
[2018-08-24 11:59] VITALS: Ht 167.6 cm; Wt 82.6 kg
[2018-08-24 12:30] VITALS: BP 116/70
--- NOTE | 2018-08-24 13:19 | NUR ---
MIDLINE TO LEFT UPPER ARM PLACED VIA VASCULAR ACCESS NURSE
--- NOTE | 2018-08-24 15:46 | MORECARE ---
CASE MANAGEMENT DISCHARGE SUMMARY PATIENT: YRN ECHEVARRIA UNIT: [id number] ADM DATE: 08/23/18 AGE: 43 : [birth year] SEX: F ROOM/BED: D.1210 AUTHOR: LAN SALEH PHYSICIAN: REFERRING PHYSICIAN: JOSE CARDENAS MD DATE OF SERVICE: 08/24/18 Discharge Plan Patient Name: YRN ECHEVARRIA Facility: [facility]:[place] : 1975 Planned Disposition: Anticipated Discharge Date: Discharge Date: Expected LOS: Initial Reviewer: [email or web address] Initial Review Date: 08/23/2018 Generated: 08/24/18 4:46 pm DCPIA - Discharge Planning Initial Assessment Updated by [id number]: Sol Donovan on 08/24/18 3:45 pm * Is the patient Alert and Oriented? Yes * PCP RIN AND JOSELIN * Pharmacy [facility] [address] * Preadmission Environment Home with Family * ADLs Independent * Equipment Nebulizer Oxygen Walker * Other Equipment WOUND VAC * List name and contact numbers for known caregivers / representatives who currently or will assist patient after discharge: SALO, GRACE, * Community resources currently utilized Home Health * Please name any agencies selected above. [facility], [facility] FOR [facility], HAS WOUND VAC. * Additional services required to return to the preadmission environment? No * Can the patient safely return to the preadmission environment? Yes * Has this patient been hospitalized within the prior 30 days at any hospital? Yes Last DP export: 08/23/18 6:27 pm Patient Name: YRN ECHEVARRIA Page 40631 at 1546 All edits/amendments must be made on the electronic document DICTATION DATE: 08/24/18 1546 FAN BALANCER: NEAL 08/24/18 154 RPT#: [id number] DC DATE: STATUS: ADM IN [facility] [address] [place] [address] END OF REPORT
--- NOTE | 2018-08-24 15:54 | MORECARE ---
CASE MANAGEMENT DISCHARGE SUMMARY PATIENT: YRN ECHEVARRIA UNIT: [id number] ADM DATE: 08/23/18 AGE: 43 : 73 SEX: F ROOM/BED: D.1210 AUTHOR: DELFINODOC PHYSICIAN: REFERRING PHYSICIAN: JOSE CARDENAS MD DATE OF SERVICE: 08/24/18 Discharge Plan Patient Name: YRN ECHEVARRIA Facility: [facility]:[place] : 1975 Planned Disposition: Anticipated Discharge Date: Discharge Date: Expected LOS: Initial Reviewer: [email or web address] Initial Review Date: 08/23/2018 Generated: 08/24/18 4:54 pm Comments DCP- Discharge Planning Updated by [id number]: Sol Donovan on 08/24/18 2:[address] Patient Name: YRN ECHEVARRIA Admission Status: ER Accout number: [id number] Admission Date: 08-23-2018 : 1975 Admission Diagnosis: Attending: JOSE CARDENAS Current LOS: 1 Anticipated DC Date: Planned Disposition: Primary Insurance: MEDICARE A & B Discharge Planning Comments: CM MET WITH PATIENT ABOUT DC PLANNING/NEEDS. STATES SHE HAS HOME HEALTH WITH [facility] AND SHE HAS A WOUND VAC. O2 AND NEBULIZER IS WITH HOME PATIENT. PATIENT STATES NO OTHER RESOURCES NEEDED. CM WILL FOLLOW AND ASSIST NEEDED. Security Sales Manager: Sol Donovan DCPIA - Discharge Planning Initial Assessment Updated by [id number]: Sol Donovan on 08/24/18 3:45 pm * Is the patient Alert and Oriented? Yes * PCP LIANA * Pharmacy [facility] [address] * Preadmission Environment Home with Family * ADLs Independent * Equipment Nebulizer Oxygen Walker * Other Equipment WOUND VAC * List name and contact numbers for known caregivers / representatives who currently or will assist patient after discharge: SALO, GRACE, * Community resources currently utilized Home Health * Please name any agencies selected above. [facility], [facility], HAS WOUND VAC. * Additional services required to return to the preadmission environment? No * Can the patient safely return to the preadmission environment? Yes * Has this patient been hospitalized within the prior 30 days at any hospital? Yes Last DP export: 08/24/18 2:46 p Patient Name: YRN ECHEVARRIA Page [id number] at 1554 All edits/amendments must be made on the electronic document DICTATION DATE: 08/24/181553 BEHAVIORAL HEALTH CONSULTANT: NEAL 08/24/181553 RPT#: [id number] DC DATE: STATUS: ADM IN [facility] [address] [place] [address] END OF REPORT
--- NOTE | 2018-08-24 16:35 | NUR ---
Wound vac dressing change, using one piece black foam cut divehi purcell size. Wound measures 4cm x 2cm x 5cm. Pt tolerated well.
[2018-08-24 16:47] VITALS: BP 124/74
--- NOTE | 2018-08-24 19:00 | NUR ---
RECIEVED LAYING IN BED WITH EYES OPEN AND TV ON. HOB ELEVATED. ALERT AND ORIENTED X4. WOUND VAC DSG TO LOWER ABDOMEN CDI. FUNCTIONING PROPERLY. UP AD JENN TO BATHROOM. TELEMETRY IN PLACE. REPORTS WEARS CPAP AT HS. LUNG SOUNDS CRACKLES BILATERALLY. RED SPOT TO CENTER OF UPPER CHEST. STATES VERY PAINFUL AND WARMTH MAKES IT FEEL BETTER. C/O THRUSH TO MOUTH. TOUNGE HAS SMALL BLISTERS AND IS NOT COATED. DENIES ANY OTHER NEEDS AT THIS TIME.
[2018-08-24 20:00] VITALS: BP 99/51
[2018-08-25 04:51] VITALS: BP 101/49
--- NOTE | 2018-08-25 07:05 | NUR ---
PATIENT RECIEVED FROM PREVIOUS SHIFT RESTING IN BED WITH NO NEEDS VOICED. WOUND VAC DRESSING IN PLACE AND PATENT. NO REPORTS OF PAIN AT THIS TIME. DENIES SHORTNESS OF BREATH. CL IN REACH
[2018-08-25 07:13] LABS: HEMATOCRIT 27.4 % (36.0-48.0); HEMOGLOBIN 9.1 g/dL (12-16); MCH 29.8 pg (26.0-34.0); MCHC 33.2 g/dL (31.0-37.0); MCV 89.8 fL (80.0-100.0); MEAN PLATELET VOLUME 10.2 fL (7.4-10.4); PLATELET COUNT 445 10x3/uL (130-400); RBC 3.05 10x6/uL (4.00-5.40); WBC 11.1 10x3/uL (4.8-10.8)
[2018-08-25 07:18] LABS: ANION GAP 11.7 mmol/L (8-16); CALCIUM 8.3 mg/dL (8.5-10.1); CARBON DIOXIDE 33.7 mmol/L (21.0-32.0); POTASSIUM - SERUM 3.4 mmol/L (3.5-5.1)
[2018-08-25 07:23] LABS: CREATININE - SERUM 0.9 mg/dL (0.6-1.3)
[2018-08-25 07:39] LABS: EOSINOPHILS 3 % (0-7); HYPOCHROMASIA 1+; LYMPHOCYTES 14 % (15-50); MONOCYTES 8 % (2-11); NEUTROPHILS 65 % (40-80); PLATELET ESTIMATE NORMAL; PLATELET MORPHOLOGY GIANT PLTS PRESENT
[2018-08-25 08:00] VITALS: BP 108/54
[2018-08-25 12:48] VITALS: BP 110/62
[2018-08-25 15:45] VITALS: BP 104/62
--- NOTE | 2018-08-25 19:28 | NUR ---
PATIENT RESTING IN BED AND DENIES NEEDS AT THIS TIME. BED IN LOWEST POSITION AND CALL LIGHT WITHIN REACH. ENCOURAGED THE PATIENT TO CALL IF SHE HAS NEEDS. WILL CONTINUE TO MONITOR.
[2018-08-25 20:00] VITALS: BP 130/70
[2018-08-26] VITALS: BP 129/65
[2018-08-26 06:06] LABS: BASOPHILS 0.3 % (0-2); HEMATOCRIT 26.9 % (36.0-48.0); HEMOGLOBIN 8.8 g/dL (12-16); LYMPHOCYTES 34.4 % (15-50); MCH 29.3 pg (26.0-34.0); MCHC 32.7 g/dL (31.0-37.0); MCV 89.7 fL (80.0-100.0); MEAN PLATELET VOLUME 10.3 fL (7.4-10.4); MONOCYTES 6.5 % (2-11); NEUTROPHILS 53.8 % (40-80); PLATELET COUNT 413 10x3/uL (130-400); RDW 13.9 % (11.5-14.5); WBC 9.3 10x3/uL (4.8-10.8)
[2018-08-26 06:22] LABS: CARBON DIOXIDE 30.2 mmol/L (21.0-32.0); CREATININE - SERUM 0.9 mg/dL (0.6-1.3); POTASSIUM - SERUM 3.2 mmol/L (3.5-5.1)
--- NOTE | 2018-08-26 07:00 | NUR ---
RECEIVED REPORT. ASSUMED CARE OF PATIENT. CALL LIGHT WITHIN REACH. PATIENT SITTING IN BED, AWAKE, ALERT. CALL LIGHT WITIN REACH. WOUND VAC TO ABD PATENT. DENIES NEEDS. NO DISTRESS.
--- NOTE | 2018-08-26 09:17 | NUR ---
OOB TO CHAIR AT BEDSIDE. WANTING TO KNOW WHEN THE MD WILL ROUND, PATIENT WANTS TO GO HOME TODAY. NO DISTRESS. CALL LIGHT WITHIN REACH.
[2018-08-26 09:20] VITALS: BP 108/57
[2018-08-26 13:31] VITALS: BP 111/60
--- NOTE | 2018-08-26 14:10 | MORECARE ---
CASE MANAGEMENT DISCHARGE SUMMARY PATIENT: YRN ECHEVARRIA UNIT: [id number] ADM DATE: 08/24/18 AGE: 43 : 73 SEX: F ROOM/BED: D.1210 AUTHOR: DELFINODOC PHYSICIAN: REFERRING PHYSICIAN: JOSE CARDENAS MD DATE OF SERVICE: 08/26/18 Discharge Plan Patient Name: YRN ECHEVARRIA Facility: [facility]:[place] : 1975 Planned Disposition: Anticipated Discharge Date: Discharge Date: Expected LOS: Initial Reviewer: [id number] Initial Review Date: 08/23/2018 Generated: 08/26/18 3:09 pm Comments DCP- Discharge Planning Updated by [id number]: Malka Coffey on 08/26/18 1:[address] Patient Name: YRN ECHEVARRIA Admission Status: ER Accout number: [id number] Admission Date: 08-24-2018 : 1975 Admission Diagnosis: Attending: JOSE CARDENAS Current LOS: 2 Anticipated DC Date: Planned Disposition: Primary Insurance: MEDICARE A & B Discharge Planning Comments: PT IS D/C WITH HOME WITH CONTINUATION OF HH THRU [facility] WITH HER WOUND VAC. HH WAS NOTIFIED OF DC Automotive Product Engineer: Malka Coffey DCP- Discharge Planning Updated by [email or web address]: Sol Donovan on 08/24/18 2:[address] Patient Name: YRN ECHEVARRIA Admission Status: ER Accout number: [id number] Admission Date: 08-23-2018 : 1975 Admission Diagnosis: Attending: JOSE CARDENAS Current LOS: 1 Anticipated DC Date: Planned Disposition: Primary Insurance: MEDICARE A & B Discharge Planning Comments: CM MET WITH PATIENT ABOUT DC PLANNING/NEEDS. STATES SHE HAS HOME HEALTH WITH [facility] AND SHE HAS A WOUND VAC. O2 AND NEBULIZER IS WITH HOME PATIENT. PATIENT STATES NO OTHER RESOURCES NEEDED. CM WILL FOLLOW AND ASSIST NEEDED. Automotive Product Engineer: Sol Donovan DCPIA - Discharge Planning Initial Assessment Updated by [email or web address]: Sol Donovan on 08/24/18 3:45 pm * Is the patient Alert and Oriented? Yes * PCP LIANA * Pharmacy [facility] [address] * Preadmission Environment Home with Family * ADLs Independent * Equipment Nebulizer Oxygen Walker * Other Equipment WOUND VAC * List name and contact numbers for known caregivers / representatives who currently or will assist patient after discharge: GRACE LEONG, * Community resources currently utilized Home Health * Please name any agencies selected above. [facility], [facility] FOR O[facility], HAS WOUND VAC. * Additional services required to return to the preadmission environment? No * Can the patient safely return to the preadmission environment? Yes * Has this patient been hospitalized within the prior 30 days at any hospital? Yes Coverage Notice Reviewer: [id number] - Malka Coffey Notice Issued Date-Time: 08/26/2018 13:58 Notice Type: IM Discharge Notice Notice Delivered To: Patient Relationship to Patient: Self Bacon Skin Lifter Name: Delivery Method: HAND - Hand Delivered Cher Days: Prior Verbal Notification: Recipient Understood Notice: Yes Recipient Signature: Yes Med Rec Note Co-signed by Attending: Coverage Notice Comment: Last DP export: 08/24/18 2:54 p Patient Name: YRN ECHEVARRIA Page 53790 at 1410 All edits/amendments must be made on the electronic document DICTATION DATE: 08/26/181408 PLASTIC FRAME INSERTER: NEAL 08/26/181408 RPT#: [id number] DC DATE: STATUS: ADM IN [facility] [address] [place] [address] END OF REPORT
--- NOTE | 2018-08-26 14:20 | NUR ---
LEFT UPPER ARM MIDLINE REMOVED. CATHETER TIP INTACT. NO BLEEDING FROM SITE. 2X2 GAUZE APPLIED AND SECURED WITH CLEAR TEGADERM. TOELRATED REMOVAL OF MIDLINE WELL.
--- NOTE | 2018-08-26 14:25 | NUR ---
DISCHARGE INSTRUCTIONS PROVIDED TO PATIENT. PATIENT VERBALIZED ALL INSTRUCTIONS. CHECKED WITH JUDD ORE GRADER AND SHE VERIFIED CARE OF WOUND VAC WOULD RESUME ON MONDAY WITH [address]
--- NOTE | 2018-08-26 14:38 | NUR ---
PATIENT LEFT UNIT VIA WHEELCHAIR AT THIS TIME WITH ALL PERSONAL BELONGINGS. PATIENT DISCHARGED TO HOME. PATIENT IN NO DISTRESS UPON LEAVING UNIT. PATIENT LEFT WITH HER PORTABLE WOUND VAC ON AND PATENT. NO DISTRESS.
--- NOTE | 2018-08-26 15:52 | MORECARE ---
CASE MANAGEMENT DISCHARGE SUMMARY PATIENT: YRN ECHEVARRIA UNIT: [id number] ADM DATE: 08/24/18 AGE: 43 : [birth year] SEX: F ROOM/BED: D.1210 AUTHOR: LAN SALEH PHYSICIAN: REFERRING PHYSICIAN: JOSE CARDENAS MD DATE OF SERVICE: 08/26/18 Discharge Plan Patient Name: YRN ECHEVARRIA Facility: [facility]:[place] : 1975 Planned Disposition: Anticipated Discharge Date: Discharge Date: 08/26/2018 Expected LOS: Initial Reviewer: [id number] Initial Review Date: 08/23/2018 Generated: 08/26/18 4:51 pm Comments DCP- Discharge Planning Updated by [email or web address]: Malka Coffey on 08/26/18 1:[address] Patient Name: YRN ECHEVARRIA Admission Status: ER Accout number: [id number] Admission Date: 08-24-2018 : 1975 Admission Diagnosis: Attending: JOSE CARDENAS Current LOS: 2 Anticipated DC Date: Planned Disposition: Primary Insurance: MEDICARE A & B Discharge Planning Comments: PT IS D/C WITH HOME WITH CONTINUATION OF HH [facility]RU [facility] WITH HER WOUND VAC. HH WAS NOTIFIED OF DC Admissions Counselor: Malka Coffey DCP- Discharge Planning Updated by [email or web address]: Sol Donovan on 08/24/18 2:[address] Patient Name: YRN ECHEVARRIA Admission Status: ER Accout number: [id number] Admission Date: 08-23-2018 : 1975 Admission Diagnosis: Attending: JOSE CARDENAS Current LOS: 1 Anticipated DC Date: Planned Disposition: Primary Insurance: MEDICARE A & B Discharge Planning Comments: CM MET WITH PATIENT ABOUT DC PLANNING/NEEDS. STATES SHE HAS HOME HEALTH WITH [facility] AND SHE HAS A WOUND VAC. O2 AND NEBULIZER IS WITH HOME PATIENT. PATIENT STATES NO OTHER RESOURCES NEEDED. CM WILL FOLLOW AND ASSIST NEEDED. Admissions Counselor: Sol Donovan DCPIA - Discharge Planning Initial Assessment Updated by [email or web address]: Sol Donovan on 08/24/18 3:45 pm * Is the patient Alert and Oriented? Yes * PCP LIANA * [facility]acy [facility] [address] * Preadmission Environment Home with Family * ADLs Independent * Equipment Nebulizer Oxygen Walker * Other Equipment WOUND VAC * List name and contact numbers for known caregivers / representatives who currently or will assist patient after discharge: GRACE LEONG, * Community resources currently utilized Home Health * Please name any agencies selected above. [facility], [facility], HAS WOUND VAC. * Additional services required to return to the preadmission environment? No * Can the patient safely return to the preadmission environment? Yes * Has this patient been hospitalized within the prior 30 days at any hospital? Yes Coverage Notice Reviewer: [id number] - Malka Coffey Notice Issued Date-Time: 08/26/2018 13:58 Notice Type: IM Discharge Notice Notice Delivered To: Patient Relationship to Patient: Self Retread Supervisor Name: Delivery Method: HAND - Hand Delivered Cher Days: Prior Verbal Notification: Recipient Understood Notice: Yes Recipient Signature: Yes Med Rec Note Co-signed by Attending: Coverage Notice Comment: Last DP export: 08/26/18 1:10 p Patient Name: YRN ECHEVARRIA Page 10001 at 1552 All edits/amendments must be made on the electronic document DICTATION DATE: 08/26/181550 PLAYGROUND DIRECTOR: NEAL 08/26/181550 RPT#: [id number] DC DATE:08/26/18 STATUS: DIS IN [facility] [address] [place] [address] END OF REPORT
--- NOTE | 2018-10-01 15:48 | MORECARE ---
CASE MANAGEMENT DISCHARGE SUMMARY PATIENT: YRN ECHEVARRIA UNIT: [id number] ADM DATE: 08/24/18 AGE: 43 : 73 SEX: F ROOM/BED: D.1210 AUTHOR: LAN SALEH PHYSICIAN: REFERRING PHYSICIAN: JOSE CARDENAS MD DATE OF SERVICE: 10/01/18 Discharge Plan Patient Name: YRN ECHEVARRIA Facility: [facility]:[place] : 1975 Planned Disposition: Anticipated Discharge Date: Discharge Date: 08/26/2018 Expected LOS: Initial Reviewer: [id number] Initial Review Date: 08/23/2018 Generated: 10/01/18 4:48 pm Comments DCP- Discharge Planning Updated by [email or web address]: Malka Coffey on 08/26/18 1:[address] Patient Name: YRN ECHEVARRIA Admission Status: ER Accout number: [id number] Admission Date: 08-24-2018 : 1975 Admission Diagnosis: Attending: JOSE CARDENAS Current LOS: 2 Anticipated DC Date: Planned Disposition: Primary Insurance: MEDICARE A & B Discharge Planning Comments: PT IS D/C WITH HOME WITH CONTINUATION OF HH [facility]RU [facility] WITH HER WOUND VAC. HH WAS NOTIFIED OF DC Manager Technical Sales: Malka Coffey DCP- Discharge Planning Updated by [email or web address]: Sol Donovan on 08/24/18 2:[address] Patient Name: YRN ECHEVARRIA Admission Status: ER Accout number: [id number] Admission Date: 08-23-2018 : 1975 Admission Diagnosis: Attending: JOSE CARDENAS Current LOS: 1 Anticipated DC Date: Planned Disposition: Primary Insurance: MEDICARE A & B Discharge Planning Comments: CM MET WITH PATIENT ABOUT DC PLANNING/NEEDS. STATES SHE HAS HOME HEALTH WITH [facility] AND SHE HAS A WOUND VAC. O2 AND NEBULIZER IS WITH HOME PATIENT. PATIENT STATES NO OTHER RESOURCES NEEDED. CM WILL FOLLOW AND ASSIST NEEDED. Manager Technical Sales: Sol Donovan DCPIA - Discharge Planning Initial Assessment Updated by [email or web address]: Sol Donovan on 08/24/18 3:45 pm * Is the patient Alert and Oriented? Yes * PCP LIANA * [facility]acy [facility] [place] * Preadmission Environment Home with Family * ADLs Independent * Equipment Nebulizer Oxygen Walker * Other Equipment WOUND VAC * List name and contact numbers for known caregivers / representatives who currently or will assist patient after discharge: GRACE LEONG, * Community resources currently utilized Home Health * Please name any agencies selected above. [facility], [facility], HAS WOUND VAC. * Additional services required to return to the preadmission environment? No * Can the patient safely return to the preadmission environment? Yes * Has this patient been hospitalized within the prior 30 days at any hospital? Yes External Providers [facility] Next Contact Date: Service Request Date: Service Type: Resolution: Reviewer: Comments: Coverage Notice Reviewer: [email or web address] Radha Coffey Notice Issued Date-Time: 08/26/2018 13:58 Notice Type: IM Discharge Notice Notice Delivered To: Patient Relationship to Patient: Self Commercial Loan Processor Name: Delivery Method: HAND - Hand Delivered Cher Days: Prior Verbal Notification: Recipient Understood Notice: Yes Recipient Signature: Yes Med Rec Note Co-signed by Attending: Coverage Notice Comment: Last DP export: 08/26/18 2:51 p Patient Name: YRN ECHEVARRIA Page [id number] at 1548 All edits/amendments must be made on the electronic document DICTATION DATE: 10/01/18 1548 WORM PACKER: NEAL 10/01/18 1548 RPT#: [id number] DC DATE:08/26/18 STATUS: DIS IN [facility] [address] [place] [address] END OF REPORT
== END 2018-08-26 14:41 | disposition home health service (06) | DRG 862 ==
LOC: D.ER 13:37 → D.EDHOLD 18:39 → OBSVTIME 18:39 → D.M3 19:34
PROVIDERS: Family Medicine; Surgery; ADMIT Surgery; ATTEND Surgery
DX: T81.41XA Infection following a procedure, superficial incisional surgical site, initial encounter (principal); K65.9 Peritonitis, unspecified; K57.92 Diverticulitis of intestine, part unspecified, without perforation or abscess without bleeding; T81.89XA Other complications of procedures, not elsewhere classified, initial encounter; Y83.9 Surgical procedure, unspecified as the cause of abnormal reaction of the patient, or of later complication, without mention of misadventure at the time of the procedure; R60.0 Localized edema; R19.00 Intra-abdominal and pelvic swelling, mass and lump, unspecified site; J44.9 Chronic obstructive pulmonary disease, unspecified; K21.9 Gastro-esophageal reflux disease without esophagitis; M81.0 Age-related osteoporosis without current pathological fracture; F32.9 Major depressive disorder, single episode, unspecified; F41.9 Anxiety disorder, unspecified; I10 Essential (primary) hypertension

== ENCOUNTER 2019-04-30 14:06 | Emergency (ER) | payer MEDICARE ==
[2019-04-30 14:08] VITALS: Ht 167.6 cm
[2019-04-30 15:25] LABS: BASOPHILS 0.3 % (0-2); EOSINOPHILS 1.2 % (0-7); HEMATOCRIT 41.5 % (36.0-48.0); HEMOGLOBIN 14.3 g/dL (12-16); IMMATURE GRANULOCYTES 0.3 % (0-5); LYMPHOCYTES 29.3 % (15-50); MCH 31.1 pg (26.0-34.0); MCHC 34.5 g/dL (31.0-37.0); MCV 90.2 fL (80.0-100.0); MEAN PLATELET VOLUME 10.4 fL (7.4-10.4); MONOCYTES 6.1 % (2-11); NEUTROPHILS 62.8 % (40-80); PLATELET COUNT 286 10x3/uL (130-400); RDW 12.9 % (11.5-14.5); WBC 10.1 10x3/uL (4.8-10.8)
[2019-04-30 15:56] LABS: APTT 29.7 SECONDS (22.8-39.4); INR 0.97 (0.85-1.17); PROTIME 12.8 SECONDS (11.6-15.0)
[2019-04-30 15:58] LABS: ALKALINE PHOSPHATASE 91 U/L (46-116); ALT (SGPT) 19 U/L (10-68); CALCIUM 9.4 mg/dL (8.5-10.1); CARBON DIOXIDE 27.2 mmol/L (21.0-32.0); CKMB 1.1 U/L (0.0-3.6); CREATINE KINASE 65 UL (21-215); GLUCOSE 107 mg/dL (74-106); PROTEIN - SERUM 8.5 g/dL (6.4-8.2); UREA NITROGEN 13 mg/dL (7-18); eGFR NON AFRICAN AMERICAN 64 mL/min (90-120)
[2019-04-30 16:28] LABS: ALBUMIN 4.2 g/dL (3.4-5.0); CALC OSMOLALITY 275 mosm/kg (275-300); CHLORIDE - SERUM 100 mmol/L (98-107); POTASSIUM - SERUM 4.1 mmol/L (3.5-5.1); SODIUM 138 mmol/L (136-145); TROPONIN-I < 0.017 ng/mL (0.000-0.060)
[2019-04-30 18:01] VITALS: BP 133/79
[2019-04-30] MEDS ORDERED: ACETAMINOPHEN500 M1 PO (18:08)
[2019-04-30] MEDS ORDERED: IBUPROFEN800 MG PO (18:08)
== END 2019-04-30 18:38 | disposition home or self-care (01) ==
LOC: D.ER 14:06
PROVIDERS: Family Medicine
DX: T14.8XXA Other injury of unspecified body region, initial encounter (principal); W19.XXXA Unspecified fall, initial encounter; M79.18 Myalgia, other site; I11.0 Hypertensive heart disease with heart failure; I50.9 Heart failure, unspecified; R01.1 Cardiac murmur, unspecified; J44.9 Chronic obstructive pulmonary disease, unspecified; M54.9 Dorsalgia, unspecified; K21.9 Gastro-esophageal reflux disease without esophagitis; F42.9 Obsessive-compulsive disorder, unspecified